=== PATIENT | female | born 1965 | race Caucasian/White ===

== ENCOUNTER 2018-09-21 11:48 | Emergency (ER) | payer BC ==
[2018-09-21 12:32] VITALS: TEMP 98.1
[2018-09-21 12:55] LABS: Appearance,Urine Clear (Clear); Bilirubin,Urine Negative (Negative); Blood,Urine Negative (Negative); Color,Urine Light Yellow; Glucose,Urine (UA) Negative (Negative); Ketones,Urine Negative (Negative); Leukocyte Esterase,Urine Negative (Negative); Nitrite,Urine Negative (Negative); PH, Urine 6.5 (5.0-8.0); Protein,Urine Negative (Negative); Specific Gravity,Urine 1.011 (1.001-1.035); Urobilinogen,Urine <2.0 mg/dL (<2.0)
[2018-09-21] MEDS ORDERED: SODIUM CHLORIDE 0.9% 1,000 ML IV STA (13:42)
[2018-09-21 14:12] VITALS: RESP 18
[2018-09-21 14:31] LABS: Basophils % (A) 0 %; Eosinophils # (A) 0.1 k/uL (0-0.7); Eosinophils % (A) 2 %; HCT 37.3 % (34.0-46.0); HGB 12.5 gm/dL (11.4-16.0); Lymphocytes # (A) 1.5 k/uL (1.0-4.8); Lymphocytes % (A) 19 %; MCH 27.6 pg (25.0-35.0); MCHC 33.5 g/dL (31.0-37.0); MCV 82.3 fL (80.0-100.0); Mean Platelet Volume 7.6; Monocytes # (A) 0.3 k/uL (0-1.0); Monocytes % (A) 4 %; Neutrophils # (A) 5.7 k/uL (1.3-7.7); Neutrophils % (A) 74 %; Platelet Count 254 k/uL (150-450); RBC 4.53 m/uL (3.80-5.40); RDW 15.3 % (11.5-15.5); WBC 7.8 k/uL (3.8-10.6)
[2018-09-21 14:36] LABS: ALT 46 U/L (9-52); AST 31 U/L (14-36); Albumin 4.3 g/dL (3.5-5.0); Alkaline Phosphatase 151 U/L (38-126); Amylase 45 U/L (30-110); Anion Gap 9 mmol/L; Blood Urea Nitrogen 17 mg/dL (7-17); Carbon Dioxide 31 mmol/L (22-30); Chloride 101 mmol/L (98-107); Glucose 100 mg/dL (74-99); Lipase 99 U/L (23-300); Potassium 3.9 mmol/L (3.5-5.1); Sodium 141 mmol/L (137-145); Total Bilirubin 0.5 mg/dL (0.2-1.3); Total Protein 7.5 g/dL (6.3-8.2)
--- NOTE | 2018-09-21 14:37 | CT ---
EXAMINATION TYPE: CT abdomen pelvis wo con DATE OF EXAM: 09/21/2018 COMPARISON: None INDICATION: Right sided flank pain, low back pain DLP: 2451 mGycm, Automated exposure control for dose reduction was used. CONTRAST: 0 mL of Isovue 300. Study performed without Oral Contrast TECHNIQUE: Axial images were obtained from above the diaphragm to the pubic rami in the axial plane a t 5 mm thick sections. Reconstructed images are reviewed on the computer in the coronal plane. FINDINGS: Limited CT sections are obtained the lung bases. The lung bases are clear. Coronary artery calcific ations present. CT ABDOMEN: Postsurgical changes are within the stomach. Liver: Normal Spleen: Normal Pancreas: Normal Adrenal glands: The adrenal glands are normal. Gallbladder: Surgically absent. Kidneys: No masses are evident. No hydronephrosis is present. No cysts are present. There may be s ome malrotation of the right kidney. No renal stones are evident. Aorta: Vascular calcification is within the aorta. Inferior vena cava: Normal. CT PELVIS: Loops of bowel within the abdomen and pelvis are normal. Small bowel loops are decompressed. Stud y is without oral contrast limiting bowel evaluation. Appendix: Not identified. No inflammatory changes or dilated tubular structures are evident. Urinary bladder: Normal Genitourinary structures: Uterus and adnexa are normal. Osseous structures: No suspicious lytic or sclerotic lesions. IMPRESSIONS: 1. No abnormality to account for right flank pain
--- NOTE | 2018-09-21 14:46 | ED ---
Abdominal Pain HPI - General Chief Complaint: Abdominal Pain Stated Complaint: Lower back pain Time Seen by Provider: 09/21/18 13:22 Source: patient, RN notes reviewed Mode of arrival: ambulatory Limitations: no limitations - History of Present Illness Initial Comments: 53-year-old female presents emergency Department with chief complaint of right flank pain. Patient states started a few days ago. Patient states has progressively worsened but is exacerbated by movement. Patient feels that this muscle skeletal nature. Patient was seen by her chiropractor recommended her to be evaluated emergency department. Patient denies any associated nausea and diarrhea constipation no dysuria no hematuria. Patient states that she's had prior appendectomy and cholecystectomy along with bariatric surgery. - Related Data Home Medications Medication Instructions Recorded Confirmed Hydrochlorothiazide [Hydrodiuril] 25 mg PO DAILY 04/04/14 09/21/18 Ergocalciferol (Vitamin D2) 50,000 unit PO PUENTE 09/21/18 09/21/18 [Drisdol] Olmesartan Medoxomil [Benicar] 40 mg PO DAILY 09/21/18 09/21/18 Omeprazole [PriLOSEC] 20 mg PO DAILY 09/21/18 09/21/18 amLODIPine [Norvasc] 5 mg PO DAILY 09/21/18 09/21/18 Allergies Allergy/AdvReac Type Severity Reaction Status Date / Time No Known Allergies Allergy Verified 09/21/18 13:39 Review of Systems ROS Statement: Those systems with pertinent positive or pertinent negative responses have been documented in the HPI. ROS Other: All systems not noted in ROS Statement are negative. Past Medical History Past Medical History: Asthma, GERD/Reflux, Hypertension, Sleep Apnea/CPAP/BIPAP Additional Past Medical History / Comment(s): "SEASONAL ASTHMA" , HX OF BRONCHITIS, USES C-PAP OCCASIONALLY. ANEMIA. History of Any Multi-Drug Resistant Organisms: None Reported, MRSA Date of last positivie culture/infection: In the past MDRO Source:: pt Past Surgical History: Appendectomy, Bariatric Surgery, Section, Cholecystectomy Additional Past Surgical History / Comment(s): EXPLORATORY SURGERY. lap gastric sleeve w/ EGD 01/03/15 Past Anesthesia/Blood Transfusion Reactions: Previous Problems w/ Anesthesia, Motion Sickness, Postoperative Nausea & Vomiting (PONV) Past Psychological History: No Psychological Hx Reported Smoking Status: Former smoker Past Alcohol Use History: None Reported Past Drug Use History: Cocaine, Marijuana General Exam Limitations: no limitations General appearance: alert, in no apparent distress Head exam: Present: atraumatic, normocephalic, normal inspection Neck exam: Present: normal inspection. Absent: tenderness, meningismus, lymphadenopathy Respiratory exam: Present: normal lung sounds bilaterally. Absent: respiratory distress, wheezes, rales, rhonchi, stridor Cardiovascular Exam: Present: regular rate, normal rhythm, normal heart sounds. Absent: systolic murmur, diastolic murmur, rubs, gallop, clicks GI/Abdominal exam: Present: soft, tenderness (Minimal), normal bowel sounds. Absent: distended, guarding, rebound, rigid Back exam: Present: CVA tenderness (R) (Minimal). Absent: CVA tenderness (L) Neurological exam: Present: alert, oriented X3, CN II-XII intact Skin exam: Present: warm, dry, intact, normal color. Absent: rash Course Vital Signs 09/21/18 09/21/18 12:28 14:11 Temperature 98.1 F Pulse Rate 75 78 Respiratory 20 18 Rate Blood Pressure 148/75 118/78 O2 Sat by Pulse 97 99 Oximetry Medical Decision Making - Medical Decision Making 53-year-old female presented for right flank pain. Patient labwork urinalysis and CT. There are no acute findings. This most likely is muscle skeletal in nature. Patient will follow-up with PCP and chiropractor. Return parameters were discussed. - Lab Data Result diagrams: 09/21/18 14:00 09/21/18 14:00 Lab Results 09/21/18 09/21/18 09/21/18 Range/Units 12:37 14:00 14:00 WBC 7.8 (3.8-10.6) k/uL RBC 4.53 (3.80-5.40) m/uL Hgb 12.5 (11.4-16.0) gm/dL Hct 37.3 (34.0-46.0) % MCV 82.3 (80.0-100.0) fL MCH 27.6 (25.0-35.0) pg MCHC 33.5 (31.0-37.0) g/dL RDW 15.3 (11.5-15.5) % Plt Count 254 (150-450) k/uL Neutrophils % 74 % Lymphocytes % 19 % Monocytes % 4 % Eosinophils % 2 % Basophils % 0 % Neutrophils # 5.7 (1.3-7.7) k/uL Lymphocytes # 1.5 (1.0-4.8) k/uL Monocytes # 0.3 (0-1.0) k/uL Eosinophils # 0.1 (0-0.7) k/uL Basophils # 0.0 (0-0.2) k/uL Sodium 141 (137-145) mmol/L Potassium 3.9 (3.5-5.1) mmol/L Chloride 101 (98-107) mmol/L Carbon Dioxide 31 H (22-30) mmol/L Anion Gap 9 mmol/L BUN 17 (7-17) mg/dL Creatinine 0.54 (0.52-1.04) mg/dL Est GFR (CKD-EPI)AfAm >90 (>60 ml/min/1.73 sqM) Est GFR (CKD-EPI)NonAf >90 (>60 ml/min/1.73 sqM) Glucose 100 H (74-99) mg/dL Calcium 10.0 (8.4-10.2) mg/dL Total Bilirubin 0.5 (0.2-1.3) mg/dL AST 31 (14-36) U/L ALT 46 (9-52) U/L Alkaline Phosphatase 151 H (38-126) U/L Total Protein 7.5 (6.3-8.2) g/dL Albumin 4.3 (3.5-5.0) g/dL Amylase 45 (30-110) U/L Lipase 99 (23-300) U/L Urine Color Light Yellow Urine Appearance Clear (Clear) Urine pH 6.5 (5.0-8.0) Ur Specific [place] 1.011 (1.001-1.035) Urine Protein Negative (Negative) Urine Glucose (UA) Negative (Negative) Urine Ketones Negative (Negative) Urine Blood Negative (Negative) Urine Nitrite Negative (Negative) Urine Bilirubin Negative (Negative) Urine Urobilinogen <2.0 (<2.0) mg/dL Ur Leukocyte Esterase Negative (Negative) Disposition Clinical Impression: Back pain, Flank pain Disposition: HOME SELF-CARE Condition: Stable Instructions (If sedation given, give patient instructions): Back Pain (ED), Flank Pain (ED) Additional Instructions: Please return to the Emergency Department if symptoms worsen or any other concerns. Is patient prescribed a controlled substance at d/c from ED?: No Referrals: Nikki Turcios MD [Primary Care Provider] - 1-2 days Time of Disposition: 14:46
[2018-09-21] MEDS ORDERED: ACET/COD 300 MG/30 MG STARTER PACK 6 TAB BTL PO STA (14:48)
[2018-09-21] MEDS ORDERED: KETOROLAC 30 MG/ML 1 ML VIAL IVP STA (14:48)
[2018-09-21 15:09] VITALS: BP 118/67; PULSE 79
== END 2018-09-21 15:07 | disposition home or self-care (01) ==
LOC: EC 11:48
DX: R10.9 Unspecified abdominal pain (principal); M54.5 Low back pain; K21.9 Gastro-esophageal reflux disease without esophagitis; I10 Essential (primary) hypertension; G47.30 Sleep apnea, unspecified; Z79.899 Other long term (current) drug therapy; Z87.891 Personal history of nicotine dependence; Z90.49 Acquired absence of other specified parts of digestive tract; Z90.89 Acquired absence of other organs; Z98.84 Bariatric surgery status
CPT/HCPCS: 36415; 80053; 82150; 83690; 85025; 81003; 74176; 99284; 96374; 96361; J1885

== ENCOUNTER 2019-05-07 09:08 | Observation (INO) | payer BC ==
[2019-05-07] MEDS ORDERED: ASPIRIN 81 MG PO STA (09:24)
--- NOTE | 2019-05-07 10:12 | ED ---
Chest Pain HPI - General Chief Complaint: Chest Pain Stated Complaint: chest pain/arm numbness Time Seen by Provider: 05/07/19 09:14 Source: patient, RN notes reviewed Mode of arrival: wheelchair Limitations: no limitations - History of Present Illness Initial Comments: 53-year-old female presents emergency Department chief complaint of chest pain. Patient states that she had some pinching sensation across her chest yesterday now she states she has more heaviness in her chest, left arm numbness and pain. Patient also states that she feels short of breath. She has a history of hypertension and strong family cardiac disease history. Patient denies any medications for hyperlipidemia or diabetes though she states that she was told she was borderline and does dietary changes. Patient's states that she occasionally smokes but states that she used to heavy smoke 17 years ago. Patient complains nausea no vomiting she has meant to that she has swelling of her legs with this is chronic in which she takes hydrochlorothiazide for. Patient has no history of DVT or PE. - Related Data Home Medications Medication Instructions Recorded Confirmed Hydrochlorothiazide [Hydrodiuril] 25 mg PO DAILY 04/04/14 05/07/19 Ergocalciferol (Vitamin D2) 50,000 unit PO PUENTE 09/21/18 05/07/19 [Drisdol] Olmesartan Medoxomil [Benicar] 40 mg PO DAILY 09/21/18 05/07/19 Omeprazole [PriLOSEC] 20 mg PO DAILY 09/21/18 05/07/19 amLODIPine [Norvasc] 5 mg PO DAILY 09/21/18 05/07/19 Allergies Allergy/AdvReac Type Severity Reaction Status Date / Time No Known Allergies Allergy Verified 05/07/19 11:15 Review of Systems ROS Statement: Those systems with pertinent positive or pertinent negative responses have been documented in the HPI. ROS Other: All systems not noted in ROS Statement are negative. EKG Findings - EKG Comments: EKG Findings:: EKG performed at 9:47 normal sinus rhythm rate of 72, NC 170 QS 98 QT/QTC 392/429 there is S1 [id number] Past Medical History Past Medical History: Asthma, GERD/Reflux, Hypertension, Sleep Apnea/CPAP/BIPAP Additional Past Medical History / Comment(s): "SEASONAL ASTHMA" , HX OF BRONCHITIS, USES C-PAP OCCASIONALLY. ANEMIA. History of Any Multi-Drug Resistant Organisms: None Reported, MRSA Date of last positivie culture/infection: In the past MDRO Source:: pt Past Surgical History: Appendectomy, Bariatric Surgery, Section, Cholec ystectomy Additional Past Surgical History / Comment(s): EXPLORATORY SURGERY. lap gastric sleeve w/ EGD 01/03/15 Past Anesthesia/Blood Transfusion Reactions: Previous Problems w/ Anesthesia, Motion Sickness, Postoperative Nausea & Vomiting (PONV) Past Psychological History: No Psychological Hx Reported Smoking Status: Former smoker Past Alcohol Use History: None Reported Past Drug Use History: Cocaine, Marijuana General Exam Limitations: no limitations General appearance: alert, in no apparent distress Head exam: Present: atraumatic, normocephalic, normal inspection Eye exam: Present: normal appearance, PERRL, EOMI. Absent: scleral icterus, conjunctival injection, periorbital swelling ENT exam: Present: normal exam, normal oropharynx, mucous membranes moist Neck exam: Present: normal inspection, full ROM. Absent: tenderness, meningismus, lymphadenopathy Respiratory exam: Present: normal lung sounds bilaterally, chest wall tenderness. Absent: respiratory distress, wheezes, rales, rhonchi, stridor Cardiovascular Exam: Present: regular rate, normal rhythm, normal heart sounds. Absent: systolic murmur, diastolic murmur, rubs, gallop, clicks GI/Abdominal exam: Present: soft, normal bowel sounds. Absent: distended, tenderness, guarding, rebound, rigid Neurological exam: Present: alert, oriented X3, CN II-XII intact Skin exam: Present: warm, dry, intact, normal color. Absent: rash Course Vital Signs 05/07/19 05/07/19 05/07/19 09:10 09:13 09:53 Temperature 97.5 F L Pulse Rate 84 81 Respiratory 20 20 Rate Blood Pressure 184/77 O2 Sat by Pulse 99 99 97 Oximetry 05/07/19 05/07/19 05/07/19 10:00 10:10 10:13 Temperature Pulse Rate 85 74 Respiratory 20 Rate Blood Pressure 119/62 128/66 O2 Sat by Pulse 97 97 100 Oximetry 05/07/19 05/07/19 05/07/19 10:20 10:30 10:40 Temperature Pulse Rate 81 73 77 Respiratory Rate Blood Pressure 128/66 128/66 132/64 O2 Sat by Pulse 97 99 96 Oximetry 05/07/19 05/07/19 10:50 11:00 Temperature Pulse Rate 73 79 Respiratory Rate Blood Pressure 132/64 115/72 O2 Sat by Pulse 95 95 Oximetry Chest Pain MDM - MDM patient's lab work essentially unremarkable patient's d-dimer is mildly elevated CT obtained no PE. Patient be admitted for cardiac rule out. Disposition Clinical Impression: Hypertension, Chest pain Disposition: ADMITTED IP TO THIS HOSP Condition: Stable Referrals: Nikki Turcios MD [Primary Care Provider] - 1-2 days
--- NOTE | 2019-05-07 10:14 | XR ---
EXAMINATION TYPE: XR chest 2V DATE OF EXAM: 05/07/2019 COMPARISON: 10/23/2014 HISTORY: Chest pain TECHNIQUE: Frontal and lateral views of the chest are obtained. FINDINGS: There is no focal air space opacity, pleural effusion, or pneumothorax seen. The cardiac silhouette size is enlarged but stable from the prior. The osseous structures are intact. Moderate multilevel degenerative change of the spine. IMPRESSION: Stable enlarged cardiomediastinal silhouette. No acute process.
[2019-05-07 10:15] LABS: Basophils % (A) 0 %; Eosinophils # (A) 0.1 k/uL (0-0.7); Eosinophils % (A) 1 %; HCT 39.9 % (34.0-46.0); HGB 12.9 gm/dL (11.4-16.0); Lymphocytes % (A) 15 %; MCH 26.6 pg (25.0-35.0); MCHC 32.4 g/dL (31.0-37.0); MCV 82.2 fL (80.0-100.0); Mean Platelet Volume 8.1; Monocytes # (A) 0.3 k/uL (0-1.0); Monocytes % (A) 5 %; Neutrophils # (A) 5.2 k/uL (1.3-7.7); Neutrophils % (A) 77 %; Platelet Count 212 k/uL (150-450); RBC 4.85 m/uL (3.80-5.40); RDW 14.4 % (11.5-15.5); WBC 6.7 k/uL (3.8-10.6)
[2019-05-07 10:23] LABS: ALT 36 U/L (4-34); AST 30 U/L (14-36); African American GFR (CKD) >90 (>60 ml/min/1.73 sqM); Albumin 4.1 g/dL (3.5-5.0); Alkaline Phosphatase 146 U/L (38-126); Anion Gap 9 mmol/L; Blood Urea Nitrogen 16 mg/dL (7-17); Calcium 9.9 mg/dL (8.4-10.2); Carbon Dioxide 30 mmol/L (22-30); Chloride 100 mmol/L (98-107); Glucose 115 mg/dL (74-99); Magnesium 1.9 mg/dL (1.6-2.3); Non-African American GFR(CKD) >90 (>60 ml/min/1.73 sqM); Sodium 139 mmol/L (137-145); Total Bilirubin 0.7 mg/dL (0.2-1.3); Total Protein 7.5 g/dL (6.3-8.2)
[2019-05-07 10:33] LABS: INR 0.9 (<1.2); Partial Thromboplastin Time 20.5 sec (22.0-30.0); Prothrombin Time 10.1 sec (9.0-12.0)
[2019-05-07 10:48] LABS: D-Dimer 0.63 mg/L FEU (<0.60)
[2019-05-07] MEDS ORDERED: ACETAMINOPHEN TAB 325 MG TAB PO STA (10:58)
[2019-05-07] MEDS ORDERED: ONDANSETRON 4 MG/2 ML VIAL IVP STA (10:59)
--- NOTE | 2019-05-07 11:47 | CT ---
EXAMINATION TYPE: CT chest angio for PE DATE OF EXAM: 05/07/2019 COMPARISON: HISTORY: Chest pain, elevated d-dimer CT DLP: 942.5 mGycm CONTRAST: CT chest with contrast and 3D reconstruction with MIP imaging is performed with IV Contrast, patient injected with 100 mL of Isovue 370. Contrast-enhanced CT of the chest was performed through the course of the pulmonary arteries with singh g and mediastinal window settings submitted. 3D reconstruction with MIP imaging was also performed. PULMONARY ARTERIES: The pulmonary arteries and their major tributaries are patent. I do not see mendoza dence for sizable filling defect to suggest pulmonary embolic process. LUNGS: Scattered groundglass infiltrates noted which may reflect acute inflammatory process. No evide nce for atelectasis. No pulmonary nodule or mass is detected. No pleural effusion. MEDIASTINUM: Thoracic aorta is of normal caliber,however, evaluation is limited given timing of the contrast bolus. If there is concern for thoracic aortic pathology consider ANN-MARIE. Correlate clinicall y . The heart is not enlarged. No evidence for mediastinal mass. No mediastinal lymph nodes greater than 1cm. HILAR STRUCTURES: No evidence for mass. No hilar lymph nodes greater than 1 cm. UPPER ABDOMEN: No significant abnormality is seen. IMPRESSION: 1. No evidence for Pulmonary embolism at this time.
[2019-05-07] MEDS ORDERED: NITROGLYCERIN SL TABS 0.4 MG TAB SUBLINGUAL PRN (12:02)
[2019-05-07] MEDS ORDERED: HEPARIN SODIUM,PORCINE 5,000 UNIT/ML 1 ML VIAL IV PRN (12:02)
[2019-05-07] MEDS ORDERED: HEPARIN SODIUM,PORCINE 5,000 UNIT/ML 1 ML VIAL IV ONE (12:02)
[2019-05-07] MEDS ORDERED: HEPARIN SOD,PORK IN 0.45% NACL 25,000 UNIT in 0.45% NACL 1 250ML.BAG IV SCH (12:15)
--- NOTE | 2019-05-07 12:57 | P.HPIM ---
History of Present Illness H&P Date: 05/07/19 53 years old patient of Dr. Turcios with past medical history of asthma GERD hypertension and sleep apnea comes in with chest pain that started yesterday with the feeling of heaviness in the chest associated with left of numbness and pain on and shortness of breath for the past 3 days . Patient denies any previous history of coronary artery disease. She does smokesocially fo rthe past 6 mo nth but has not smoked for th e past 17 years .patient does have history of severe GERD and has taken Motrin yesterday for the shoulder pain and muscle aches. Patient does have fibromyalgia and has been experiencing body aches for the past few days. She has also noticed swelling in the lower extremities Patient denies any nausea vomiting melena or history of peptic ulcer disease. He denies any intake of NSAIDs. Patient has no history of DVT or PE.patient will be kept in observation. Troponin trend will be done. Cardiology consult placed Review of Systems Constitutional: Denies chills, Denies fever, Denies lethargy, Denies malaise, Denies poor appetite, Denies weakness, Denies weight loss Eyes: denies decreased vision, denies diplopia, denies discharge, denies pain Ears: deny: decreased hearing Ears, nose, mouth and throat: Denies dental pain, Denies headache, Denies nasal discharge, Denies nose pain Cardiovascular: endorses chest pain, endorses decreased exercise tolerance, Denies edema, endorsess high blood pressure, Denies irregular heart beat, Denies palpitations, Denies paroxysmal nocturnal dyspnea, Denies rapid heart beat, endorses shortness of breath Respiratory: Denies congestion, Denies cough, Denies cough with sputum, Denies dyspnea, Denies home oxygen, Denies wheezing Gastrointestinal: Denies abdominal pain, Denies change in bowel habits, Denies coffee ground emesis, Denies early satiety, Denies excessive gas, Denies heartburn, Denies hematemesis, Denies hematochezia, Denies loss of appetite, Denies nausea, Denies vomiting Genitourinary: Denies dysuria, Denies flank pain, Denies kidney stones, Denies menorrhagia, Denies urgency, Denies urinary frequency Musculoskeletal: Denies gait dysfunction, Denies limitation of motion, Denies morning stiffness, Denies muscle cramps endorses bodyaches shoulder pain bilaterally Integumentary: Denies rash, Denies wounds, Denies brittle nails, Denies change in hair/nails, Denies darkening of skin Neurological: Denies balance difficulties, Denies change in speech, Denies double vision, Denies gait dysfunction, Denies loss of vision, Denies motor disturbance, Denies numbness, Denies paralysis, Denies paresthesias, Denies seizures Psychiatric: Denies anxiety, Denies depression Endocrine: Denies excessive sweating, Denies excessive thirst, Denies high blood sugars, Denies palpitations Hematologic/Lymphatic: Denies easy bruising, Denies lymphadenopathy Past Medical History Past Medical History: Asthma, GERD/Reflux, Hypertension, Sleep Apnea/CPAP/BIPAP Additional Past Medical History / Comment(s): "SEASONAL ASTHMA" , HX OF BRONCHITIS, USES C-PAP OCCASIONALLY. ANEMIA. History of Any Multi-Drug Resistant Organisms: None Reported, MRSA Date of last positivie culture/infection: In the past MDRO Source:: pt Past Surgical History: Appendectomy, Bariatric Surgery, Section, Cholecystectomy Additional Past Surgical History / Comment(s): EXPLORATORY SURGERY. lap gastric sleeve w/ EGD 01/03/15 Past Anesthesia/Blood Transfusion Reactions: Previous Problems w/ Anesthesia, Motion Sickness, Postoperative Nausea & Vomiting (PONV) Past Psychological History: No Psychological Hx Reported Smoking Status: Former smoker Past Alcohol Use History: None Reported Past Drug Use History: Cocaine, Marijuana Medications and Allergies Home Medications Medication Instructions Recorded Confirmed Type Hydrochlorothiazide [Hydrodiuril] 25 mg PO DAILY 04/04/14 05/07/19 History Ergocalciferol (Vitamin D2) 50,000 unit PO PUENTE 09/21/18 05/07/19 History [Drisdol] Olmesartan Medoxomil [Benicar] 40 mg PO DAILY 09/21/18 05/07/19 History Omeprazole [PriLOSEC] 20 mg PO DAILY 09/21/18 05/07/19 History amLODIPine [Norvasc] 5 mg PO DAILY 09/21/18 05/07/19 History Allergies Allergy/AdvReac Type Severity Reaction Status Date / Time No Known Allergies Allergy Verified 05/07/19 11:15 Physical Exam Vitals: Vital Signs Temp Pulse Resp BP Pulse Ox 05/07/19 11:00 79 115/72 95 05/07/19 10:50 73 132/64 95 05/07/19 10:40 77 132/64 96 05/07/19 10:30 73 128/66 99 05/07/19 10:20 81 128/66 97 05/07/19 10:13 20 100 05/07/19 10:10 74 128/66 97 05/07/19 10:00 85 119/62 97 05/07/19 09:53 81 97 05/07/19 09:13 20 99 05/07/19 09:10 97.5 F L 84 20 184/77 99 Intake and Output 05/06/19 05/07/19 05/07/19 22:59 06:59 14:59 Other: Weight 172.365 kg - Constitutional General appearance: cooperative, no acute distress, obese - EENT Eyes: anicteric sclerae, PERRLA, normal appearance ENT: hearing grossly normal - Neck Neck: no lymphadenopathy, normal ROM, no other, no rigidity, no stridor, no thyromegaly - Respiratory Respiratory: bilateral: CTA, negative: diminished, dullness, rales, rhonchi - Cardiovascular Rhythm: regular Heart sounds: normal: S1, S2 Abnormal Heart Sounds: no systolic murmur, no diastolic murmur, no rub, no S3 Gallop, no S4 Gallop, no click, no other - Gastrointestinal General gastrointestinal: normal bowel sounds, softnontender - Integumentary Integumentary: no rash - Neurologic Neurologic: CNII-XII intact - Musculoskeletal Musculoskeletal: gait normal, strength equal bilaterally - Psychiatric Psychiatric: A&O x's 3, appropriate affect Results CBC & Chem 7: 05/07/19 09:17 05/07/19 09:17 Labs: Abnormal Lab Results - Last 24 Hours (Table) 05/07/19 05/07/19 Range/Units 09:17 09:17 APTT 20.5 L (22.0-30.0) sec D-Dimer 0.63 H (<0.60) mg/L FEU Glucose 115 H (74-99) mg/dL ALT 36 H (4-34) U/L Alkaline Phosphatase 146 H (38-126) U/L Thrombosis Risk Factor Assmnt - DVT/VTE Prophylaxis DVT/VTE Prophylaxis: Mechanical Prophylaxis ordered Assessment and Plan Plan: #1 acute chest pain rule out cardiac etiology the etiology of possible GERD and fibromyalgia, troponin 3 ordered. EKG and troponin negative for cardiology consult placed.Protonix 40 mg twice a dayd-dimer was elevated CT is negative for any blood clots. #2 hypertension Benicar 40 mg by mouth daily, hydrochlorothiazide 25 mg daily #3 history of GERD hold Prilosec Protonix 40 twice a day #4 obstructive sleep apnea continue CPAP at night DVT prophylaxis with IPC CODE STATUS full code
[2019-05-07] MEDS ORDERED: BACLOFEN 10 MG TAB PO PRN (12:58)
[2019-05-07 16:38] VITALS: RESP 18
[2019-05-07] MEDS: ASPIRIN-ACET-CAFF 250-250-65MG 1 EACH TAB PO PRN (16:52)
[2019-05-07] MEDS: PANTOPRAZOLE 40 MG TABLET PO SCH (17:21)
[2019-05-08 05:50] LABS: Mean Platelet Volume 8.3; Platelet Count 189 k/uL (150-450)
[2019-05-08 06:02] LABS: Cholesterol 197 mg/dL (<200); HDL Cholesterol 43 mg/dL (40-60); LDL Cholesterol,Calculated 128 mg/dL (0-99); Triglycerides 131 mg/dL (<150)
--- NOTE | 2019-05-08 06:53 | P.CRDCN ---
History of Present Illness Consult date: 05/08/19 Chief complaint: Chest pain History of present illness: This is a very pleasant 53-year-old female patient with a past medical history significant for morbid obesity, sleep apnea the patient is not using her CPAP machine, as well as hypertension, presented to the hospital complaining of chest discomfort. She was in her usual state of health yesterday when she started experiencing discomfort in the chest, as a sharp/pressure, with some radiation to the right arm. She was feeling also nauseated with the chest pain. No sweating. No shortness of breath, dizziness, heart racing, or syncope. She decided to come to the hospital for further evaluation. The patient EKG showed sinus rhythm with nonspecific changes inferiorly. Three sets of cardiac enzymes came in to be unremarkable. The chest x-ray did not show any acute abnormalities. The d-dimer came in to be elevated but subsequently CTA of the chest did not show any acute abnormalities. Currently the patient is chest pain free. Please note that the patient does have significant family history of coronary artery disease with her father who suffered a heart attack at age 40 and in the 70s. The patient herself does not have coronary artery disease nor diabetes. She used to smoke but she quit smoking long time ago. Past Medical History Past Medical History: Asthma, GERD/Reflux, Hypertension, Sleep Apnea/CPAP/BIPAP Additional Past Medical History / Comment(s): Bilateral leg edema, seasonal asthma, bronchitis, KIKO but has not used her Cpap for years, chronic anemia-has had past iron infusions. History of Any Multi-Drug Resistant Organisms: MRSA Date of last positivie culture/infection: 2003 MDRO Source:: L breast Past Surgical History: Appendectomy, Bariatric Surgery, Section, Cholecystectomy Additional Past Surgical History / Comment(s): Exploratory laparoto my/appendectomy, abdominal laproscopy following cholecystectomy d/t slow healling with eladia, EGD, colonoscopy, lap gastric sleeve. Past Anesthesia/Blood Transfusion Reactions: Previous Problems w/ Anesthesia, Motion Sickness, Postoperative Nausea & Vomiting (PONV) Additional Past Anesthesia/Blood Transfusion Reaction / Comment(s): Severe bronchospasm once after surgery. Pt has clausterphobia. Smoking Status: Former smoker - Past Family History Father Additional Family Medical History / Comment(s): Father had heart disease. He is . Mother Family Medical History: Renal Disease Additional Family Medical History / Comment(s): Mother is Medications and Allergies Home Medications Medication Instructions Recorded Confirmed Type Hydrochlorothiazide [Hydrodiuril] 25 mg PO DAILY 04/04/14 05/07/19 History Ergocalciferol (Vitamin D2) 50,000 unit PO PUENTE 09/21/18 05/07/19 History [Drisdol] Olmesartan Medoxomil [Benicar] 40 mg PO DAILY 09/21/18 05/07/19 History Omeprazole [PriLOSEC] 20 mg PO DAILY 09/21/18 05/07/19 History amLODIPine [Norvasc] 5 mg PO DAILY 09/21/18 05/07/19 History Allergies Allergy/AdvReac Type Severity Reaction Status Date / Time No Known Allergies Allergy Verified 05/07/19 11:15 Physical Exam Vitals: Vital Signs Temp Pulse Pulse Resp BP BP Pulse Ox 05/08/19 04:00 98.5 F 77 18 104/62 97 05/07/19 23:40 18 05/07/19 23:17 97.5 F L 80 18 131/71 96 05/07/19 20:00 18 05/07/19 19:28 97.9 F 72 18 118/65 95 05/07/19 16:00 97.8 F 73 18 115/72 95 05/07/19 13:52 82 19 05/07/19 13:10 98.3 F 82 19 117/74 95 05/07/19 11:00 79 115/72 95 05/07/19 10:50 73 132/64 95 05/07/19 10:40 77 132/64 96 05/07/19 10:30 73 128/66 99 05/07/19 10:20 81 128/66 97 05/07/19 10:13 20 100 05/07/19 10:10 74 128/66 97 05/07/19 10:00 85 119/62 97 05/07/19 09:53 81 97 05/07/19 09:13 20 99 05/07/19 09:10 97.5 F L 84 20 184/77 99 Intake and Output 05/07/19 05/07/19 05/08/19 14:59 22:59 06:59 Intake Total 73.841 102.664 Balance 73.841 102.664 Intake: Intake, IV Titration 73.841 102.664 Amount Heparin Sod,Pork in 0.45% 73.841 102.664 NaCl 25,000 unit In 0.45 % NaCl 1 250ml.bag @ 5. 802 UNITS/KG/HR 10.001 mls/hr IV .Q24H JANICE Rx#: [id number] Other: # Voids 1 1 Weight 172.365 kg 172.365 kg - Constitutional General appearance: no acute distress - Respiratory Respiratory: bilateral: CTA - Cardiovascular Rhythm: regular Heart sounds: normal: S1, S2 Results 05/08/19 05:33 05/07/19 09:17 Cardiac Enzymes 05/07/19 05/07/19 05/07/19 Range/Units 09:17 09:17 14:56 AST 30 (14-36) U/L Troponin I <0.012 <0.012 (0.000-0.034) ng/mL 05/07/19 Range/Units 22:20 AST (14-36) U/L Troponin I <0.012 (0.000-0.034) ng/mL Coagulation 05/07/19 05/07/19 05/08/19 Range/Units 09:17 18:11 02:07 PT 10.1 (9.0-12.0) sec APTT 20.5 L 31.7 H 39.7 H (22.0-30.0) sec 05/08/19 Range/Units 05:33 PT (9.0-12.0) sec APTT 50.6 H (22.0-30.0) sec Lipids 05/08/19 Range/Units 05:33 Triglycerides 131 (<150) mg/dL Cholesterol 197 (<200) mg/dL HDL Cholesterol 43 (40-60) mg/dL CBC 05/07/19 05/08/19 Range/Units 09:17 05:33 WBC 6.7 (3.8-10.6) k/uL RBC 4.85 (3.80-5.40) m/uL Hgb 12.9 (11.4-16.0) gm/dL Hct 39.9 (34.0-46.0) % Plt Count 212 189 (150-450) k/uL Comprehensive Metabolic Panel 05/07/19 Range/Units 09:17 Sodium 139 (137-145) mmol/L Potassium 4.0 (3.5-5.1) mmol/L Chloride 100 (98-107) mmol/L Carbon Dioxide 30 (22-30) mmol/L BUN 16 (7-17) mg/dL Creatinine 0.74 (0.52-1.04) mg/dL Glucose 115 H (74-99) mg/dL Calcium 9.9 (8.4-10.2) mg/dL AST 30 (14-36) U/L ALT 36 H (4-34) U/L Alkaline Phosphatase 146 H (38-126) U/L Total Protein 7.5 (6.3-8.2) g/dL Albumin 4.1 (3.5-5.0) g/dL Current Medications Generic Name Dose Route Start Last Admin Trade Name Freq PRN Reason Stop Dose Admin Acetaminophen/Aspirin/Caffeine 1 each 05/07/19 16:24 05/07/19 16:52 Excedrin PO 1 each Q6HR PRN Administration Headache Amlodipine Besylate 5 mg 05/08/19 09:00 Norvasc PO DAILY [facility] Aspirin 325 mg 05/08/19 09:00 Aspirin PO DAILY JANICE Baclofen 5 mg 05/07/19 12:58 05/07/19 13:35 Lioresal PO 5 mg TID PRN Administration Muscle Spasm Heparin Sodium (Porcine) 0 unit 05/07/19 12:02 Heparin IV Q6HR PRN Low PTT Protocol Hydrochlorothiazide 25 mg 05/08/19 09:00 Hydrodiuril PO DAILY [facility] Heparin Sodium/Sodium Chloride 250 mls @ 10.001 mls/hr 05/07/19 12:15 05/08/19 02:46 25,000 unit/ Sodium Chloride IV 11.8 units/kg/hr .Q24H JANICE 20.339 mls/hr Titration Protocol 5.802 UNITS/KG/HR Losartan Potassium 150 mg 05/08/19 09:00 Cozaar PO DAILY [facility] Nitroglycerin 0.4 mg 05/07/19 12:02 Nitrostat SUBLINGUAL Q5M PRN Chest Pain Pantoprazole Sodium 40 mg 05/07/19 17:30 05/07/19 17:21 Protonix PO 40 mg AC-BID JANICE Administration Intake and Output 05/07/19 05/07/19 05/08/19 14:59 22:59 06:59 Intake Total 73.841 102.664 Balance 73.841 102.664 Intake: Intake, IV Titration 73.841 102.664 Amount Heparin Sod,Pork in 0.45% 73.841 102.664 NaCl 25,000 unit In 0.45 % NaCl 1 250ml.bag @ 5. 802 UNITS/KG/HR 10.001 mls/hr IV .Q24H JANICE Rx#: [id number] Other: # Voids 1 1 Weight 172.365 kg 172.365 kg Patient Weight 05/08/19 06:59 Weight 172.365 kg 05/08/19 05:33 05/07/19 09:17 Assessment and Plan Assessment: Assessment #1 atypical chest discomfort #2 hypertension #3 morbid obesity #4 obstructive sleep apnea #5 significant family history of CAD Plan #1 acute coronary event was ruled out #2 pulmonary embolism was ruled out #3 I will obtain a stress test to rule out severe CAD #4 obtain an echocardiogram was Doppler #5 follow-up with the patient Thank you for allowing us participate in her care
[2019-05-08] MEDS ORDERED: HYDROCHLOROTHIAZIDE 25 MG TAB PO SCH (09:00)
[2019-05-08] MEDS ORDERED: ASPIRIN 325 MG TAB PO SCH (09:00)
[2019-05-08] MEDS ORDERED: amLODIPine 5 MG TAB PO SCH (09:00)
[2019-05-08] MEDS ORDERED: LOSARTAN 50 MG TAB PO SCH (09:00)
[2019-05-08] MEDS: ASPIRIN-ACET-CAFF 250-250-65MG 1 EACH TAB PO PRN (09:07)
--- NOTE | 2019-05-08 10:00 | ECHOF ---
Referral Reason:CP MEASUREMENTS -------- HEIGHT: 162.6 cm WEIGHT: 172.4 kg BP: 104/62 IVSd: 1.3 cm (0.6 - 1.1) LVIDd: 4.0 cm (3.9 - 5.3) LVPWd: 1.4 cm (0.6 - 1.1) IVSs: 2.1 cm LVIDs: 2.7 cm LVPWs: 2.2 cm Ao Diam: 2.6 cm (2.0 - 3.7) AV Cusp: 2.0 cm (1.5 - 2.6) LA Diam: 4.0 cm (2.7 - 3.8) MV EXCURSION: 16.252 mm (> 18.000) MV EF SLOPE: 97 mm/s (70 - 150) EPSS: 0.3 cm MV E Marcus: 0.61 m/s MV DecT: 216 ms MV A Marcus: 0.50 m/s MV E/A Ratio: 1.22 RAP: 5.00 mmHg RVSP: 18.81 mmHg FINDINGS -------- Sinus rhythm. This was a technically difficult study with suboptimal views. Morbid Obesity The left ventricular size is normal. There is mild concentric left ventricular hypertrophy. Overa ll left ventricular systolic function is normal with, an EF between 55 - 60 %. The diastolic fillin g pattern is normal for the age of the patient {E/E'}. The RV was not well visualized. The left atrium is mildly dilated. The right atrium was not well visualized. 5.0mg of Lumason was utilized for enhancement of images The aortic valve was not well visualized. There is no evidence of aortic regurgitation. There is no evidence of aortic stenosis. The mitral valve was not well visualized. There is trace to mild mitral regurgitation. The tricuspid valve was not well visualized. The pulmonic valve was not well visualized. The aortic root size is normal. IVC Not well visulized. There is no pericardial effusion. CONCLUSIONS -------- 1. Sinus rhythm. 2. This was a technically difficult study with suboptimal views. 3. Morbid Obesity 4. The left ventricular size is normal. 5. There is mild concentric left ventricular hypertrophy. 6. Overall left ventricular systolic function is normal with, an EF between 55 - 60 %. 7. The diastolic filling pattern is normal for the age of the patient {E/E'} 8. The RV was not well visualized. 9. The left atrium is mildly dilated. 10. The right atrium was not well visualized. 11. 5.0mg of Lumason was utilized for enhancement of images 12. The aortic valve was not well visualized. 13. There is no evidence of aortic regurgitation. 14. There is no evidence of aortic stenosis. 15. The mitral valve was not well visualized. 16. There is trace to mild mitral regurgitation. 17. The tricuspid valve was not well visualized. 18. The pulmonic valve was not well visualized. 19. The aortic root size is normal. 20. IVC Not well visulized. 21. There is no pericardial effusion. LINING FELLER BLINDSTITCH: Laura Leal RDCS
[2019-05-08] MEDS: PANTOPRAZOLE 40 MG TABLET PO SCH (12:29)
[2019-05-08 12:30] VITALS: BP 121/74; PULSE 92; TEMP 98.1
--- NOTE | 2019-05-08 13:29 | ECHOS ---
STRESS ECHOCARDIOGRAM DATE OF SERVICE: 05/08/2019 INDICATIONS: Chest pain. MEDICATIONS: BASELINE HEART RATE: 87 BASELINE BLOOD PRESSURE: 146/92 MAXIMUM HEART RATE: 148 MAXIMUM BLOOD PRESSURE: 189/69 85% MPHR: 143 100% MPHR: 168 METS: 5.0 MAXIMUM STAGE REACHED: II TOTAL EXERCISE TIME: 3 minutes CLINICAL INFORMATION: STRESS DATA: Heart rate is 87, pressure is 146/92 mmHg. Baseline EKG showed sinus mechanism. The patient exercised on the treadmill according to Darnell protocol for a total of 3 minutes and achieved 5.0 METs. Max heart rate was 148 which is about 88% of maximum predicted heart rate. Maximum blood pressure was 189/69 mmHg. Clinically the patient did not have any symptoms of chest pain or chest discomfort but the EKG showed about [address]-segment depression. ECHOCARDIOGRAM IMAGES: On echocardiogram images from parasternal long axis view, parasternal short axis view, apical 4 chamber and apical 2 chamber view were obtained as the baseline images, at the peak of the heart rate as well as on recovery. The echocardiogram images showed good augmentation in the left ventricular systolic function without any evidence of wall motion abnormalities concerning for ischemia. CONCLUSION: 1. Average exercise tolerance. 2. Mild EKG changes in response to exercise. 3. Normal echocardiogram in response to exercise. MMODL / IJN: [id number] /
--- NOTE | 2019-05-08 13:38 | P.DS ---
Providers Date of admission: 05/07/19 11:59 Expected date of discharge: 05/08/19 Attending physician: Sita Powers MD Consults: 05/07/19 12:02 Consult Physician Urgent Consulting Provider: Ascencion Donovan Consult Reason/Comments: chest pain Do you want consulting provider notified?: Yes Primary care physician: Nikki Turcios [place] [facility] Course: 53 years old patient of Dr. Turcios with past medical history of asthma GERD hypertension and sleep apnea comes in with chest pain that started yesterday with the feeling of heaviness in the chest associated with left of numbness and pain on and shortness of breath for the past 3 days . Patient denies any previous history of coronary artery disease. She does smokesocially fo rthe past 6 mo nth but has not smoked for th e past 17 years .patient does have history of severe GERD and has taken Motrin yesterday for the shoulder pain and muscle aches. Patient does have fibromyalgia and has been experiencing body aches for the past few days. She has also noticed swelling in the lower extremities Patient denies any nausea vomiting melena or history of peptic ulcer disease. He denies any intake of NSAIDs. Patient has no history of DVT or PE.patient will be kept in observation. Troponin trend will be done. Cardiology consult placed 05/08: Patient has been seen by cardiology and is scheduled for stress echocardiogram to be done today. Patient seen today for evaluation and the stress lab. No chest pain or shortness of breath at the time of evaluation. Stress test came back negative and patient cleared by cardiology for discharge home. Omeprazole will be discontinued and patient placed on Protonix 40 mg twice daily. Patient will be discharged home today in stable condition. Discharge diagnoses: acute chest pain secondary to GERD hypertension history of GERD obstructive sleep apnea Discharge plan: Home Impression and plan of care have been directed as dictated by the signing physi cian. Candy Edwards nurse practitioner acting as scribe for signing physician. Patient Condition at Discharge: Good Plan - Discharge Summary Discharge Rx Participant: No New Discharge Prescriptions: New Pantoprazole [Protonix] 40 mg PO BID #60 tablet. Continue Hydrochlorothiazide [Hydrodiuril] 25 mg PO DAILY amLODIPine [Norvasc] 5 mg PO DAILY Olmesartan Medoxomil [Benicar] 40 mg PO DAILY Ergocalciferol (Vitamin D2) [Drisdol] 50,000 unit PO PUENTE Discontinued Omeprazole [PriLOSEC] 20 mg PO DAILY Discharge Medication List Hydrochlorothiazide [Hydrodiuril] 25 mg PO DAILY 04/04/14 [History] Ergocalciferol (Vitamin D2) [Drisdol] 50,000 unit PO PUENTE 09/21/18 [History] Olmesartan Medoxomil [Benicar] 40 mg PO DAILY 09/21/18 [History] amLODIPine [Norvasc] 5 mg PO DAILY 09/21/18 [History] Pantoprazole [Protonix] 40 mg PO BID #60 tablet. 05/08/19 [Rx] Follow up Appointment(s)/Referral(s): Nikki Turcios MD [Primary Care Provider] - 1 Week Ascencion Donovan MD [STAFF PHYSICIAN] - 05/22/19 10:00 am Discharge Disposition: HOME SELF-CARE
== END 2019-05-08 15:08 | disposition home or self-care (01) ==
LOC: EC 09:08 → 1SOBS 11:59
PROVIDERS: ADMIT Internal Medicine; ATTEND Internal Medicine
DX: K21.9 Gastro-esophageal reflux disease without esophagitis (principal); E66.01 Morbid (severe) obesity due to excess calories; G47.33 Obstructive sleep apnea (adult) (pediatric); I10 Essential (primary) hypertension; I25.2 Old myocardial infarction; J45.909 Unspecified asthma, uncomplicated; M79.7 Fibromyalgia; Z79.899 Other long term (current) drug therapy; Z82.49 Family history of ischemic heart disease and other diseases of the circulatory system; Z87.891 Personal history of nicotine dependence; Z86.14 Personal history of Methicillin resistant Staphylococcus aureus infection; Z90.49 Acquired absence of other specified parts of digestive tract; Z98.84 Bariatric surgery status; Z84.1 Family history of disorders of kidney and ureter; Z68.44 Body mass index [BMI] 60.0-69.9, adult
CPT/HCPCS: 93005 ×2; 96366 ×2; 96376; 96365; 96375; 99285; 36415; 93306; 93351; 85379; 83880; 80061; 80053; 83735; 84484; 85025; 85049; 85610; 85730 ×2; 71046; 71275; G0378 ×2; J1644 ×2; J2405; Q9950; Q9967

== ENCOUNTER → 2019-06-01 | Outpatient (CLI) | payer BC ==
--- NOTE | 2019-06-01 10:17 | FL ---
EXAMINATION TYPE: FL UGI w esophagus DATE OF EXAM: 06/01/2019 LIMITED UGI: CLINICAL HISTORY: History of gastric sleeve surgery 2015 with chest pain. History of reflux for 20 y ears per patient. TECHNIQUE: Limited esophagram is performed utilizing 20 oz of barium. A total of roughly 30 seconds of fluoroscopic time was utilized during procedure. 32 spot images saved to PACS. COMPARISON: CTA chest and chest x-ray May 07, 2019. FINDINGS: The patient swallowed contrast without difficulty or delay. Esophageal peristalsis and mo tility are within normal limits. There is good flow of contrast along the diaphragmatic hiatus into proximal stomach and subsequent flow into gastric sleeve proximal anastomosis. There is mild delay in flow from distal sleeve and anastomosis into pylorus. Flow into duodenal sweep not documented. Patie nt is asymptomatic. There is no evidence of contrast extravasation to suggest leak. Cholecystectomy c lips redemonstrated. Cardiomegaly also redemonstrated. IMPRESSION: No evidence of significant obstruction .
== END | disposition home or self-care (01) ==
LOC: RADUSWWP 09:15
PROVIDERS: ATTEND Family Medicine
DX: R07.9 Chest pain, unspecified (principal)
CPT/HCPCS: 74240

== ENCOUNTER → 2020-01-14 | Outpatient (CLI) | payer BC ==
[2020-01-14 16:39] LABS: Basophils % (A) 0 %; Eosinophils # (A) 0.1 k/uL (0-0.7); Eosinophils % (A) 2 %; HCT 39.1 % (34.0-46.0); HGB 12.5 gm/dL (11.4-16.0); Hypochromasia Slight; Lymphocytes # (A) 1.2 k/uL (1.0-4.8); Lymphocytes % (A) 14 %; MCH 26.6 pg (25.0-35.0); MCHC 32.1 g/dL (31.0-37.0); MCV 82.9 fL (80.0-100.0); Mean Platelet Volume 8.5; Monocytes # (A) 0.5 k/uL (0-1.0); Monocytes % (A) 6 %; Neutrophils # (A) 6.3 k/uL (1.3-7.7); Neutrophils % (A) 77 %; Platelet Count 235 k/uL (150-450); RBC 4.71 m/uL (3.80-5.40); RDW 14.7 % (11.5-15.5); WBC 8.2 k/uL (3.8-10.6)
[2020-01-15 02:01] LABS: % Iron Saturation 10.64 (12.00-45.00); African American GFR (CKD) 114.6 (60.0-200.0); Albumin 4.3 g/dL (3.80-4.90); Albumin/Globulin Ratio 1.54 (1.60-3.17); Anion Gap 10.7 mmol/L (4.00-12.00); BUN/Creat Ratio 17.14 Ratio (12.00-20.00); Calcium 9.8 mg/dL (8.7-10.3); Carbon Dioxide 29.3 mmol/L (21.6-31.8); Globulin 2.8 g/dL (1.6-3.3); Non-African American GFR(CKD) 98.9 (60.0-200.0); Total Bilirubin 0.6 mg/dL (0.2-1.2); Total Protein 7.1 g/dL (6.2-8.2)
[2020-01-15 03:49] LABS: Hemoglobin A1C 5.8 % (4.0-6.0)
[2020-01-15 14:59] LABS: Chol/HDL Ratio 4.53; LDL Cholesterol,Calculated 146.4 mg/dL (0.0-131.0); VLDL Calculation 19.6 mg/dL (5.00-40.00)
[2020-01-15 15:07] LABS: T4, Free (Free Thyroxine) 1.2 ng/dL (0.80-1.80)
== END | disposition home or self-care (01) ==
LOC: LABWHC1 15:58
PROVIDERS: ATTEND Family Medicine
DX: I10 Essential (primary) hypertension (principal); K29.01 Acute gastritis with bleeding; R06.02 Shortness of breath; Z98.84 Bariatric surgery status; D51.9 Vitamin B12 deficiency anemia, unspecified
CPT/HCPCS: 36415; 80053; 80061; 82306; 82550; 82607; 83036; 83540; 83550; 84439; 84443; 84590; 84630; 85025

== ENCOUNTER → 2020-01-17 | Outpatient (CLI) | payer BC ==
--- NOTE | 2020-01-17 16:56 | CONS ---
CONSULTATION A 54-year-old lady who has been evaluated in [facility] for obstructive sleep apnea- hypopnea syndrome. HISTORY OF PRESENT ILLNESS SLEEP WAKE EVALUATION: Patient has severe obstructive sleep apnea-hypopnea syndrome documented in May of 2011. After that, she was started on treatment with CPAP, but because of the issue of claustrophobia and difficulties to use machine, she practically did not use CPAP therapy according to the patient. Presently her sleep schedule from 11 p.m. to 6:37 am on weekdays and on weekends from 11 p.m. to different time in the morning. No problems with falling asleep, although she has TV set in bedroom. She usually sleeps on the side position with snoring episodes of stopped breathing during sleep. Multiple awakenings from sleep about 4 times with gasping for air. Panic attack and 2 episodes of nocturia at night. The patient feels discomfort in her legs, restless leg symptoms while she is falling asleep. Sometimes may see dreams right while falling asleep, possibly hypoglossal hallucinations. She may take naps up to 3 times a day, usually afternoon. [place] Sleepiness Scale is in very high range of 18. PAST MEDICAL HISTORY: Positive for hypertension, acid reflux, fibromyalgia, anemia. PAST SURGICAL HISTORY: Gastric sleeve, uterus ablation. MEDICATIONS: Hydrochlorothiazide, amlodipine, herbal calciferol, olmesartan, Tapazole, furosemide, , potassium supplement. SOCIAL HISTORY: Positive for smoking in the past; quit about 20 years ago. Alcohol consumption none. REVIEW OF SYSTEMS: Multiple awakenings from sleep, significant excessive daytime sleepiness. FAMILY HISTORY: Positive for heart problems. PHYSICAL EXAM: Obese 54-year-old lady without distress, BP 117/72, HR about 100, RR 16, height 5, 4- 1/4, weight 397.6 pounds, body mass index 67.7, temperature 98.0, oxygen saturation on room air 93%. OROPHARYNX: Low position of soft palate, Mallampati 3, wide neck 18 inches in circumference. ABDOMEN: Extremely obese. LUNGS: Clear to percussion and to auscultation. Good air exchange. No wheezing or rhonchi. HEART: S1, S2 regular. No murmurs, gallops, or rubs. EXTREMITIES: No clubbing or cyanosis. ICT DEVELOPER: Awake, alert, and oriented X3. Cranial nerves 2 to 7 intact. There is no fasciculation or atrophy. noted. No focal deficits observed. IMPRESSION: 1. Snoring, multiple awakenings from sleep with gasping for air and stopped breathing. Low position of soft palate, wide neck, significant sleepiness with [place] Sleepiness Scale 18. History of severe obstructive sleep apnea in the past. Obstructive sleep apnea-hypopnea syndrome. 2. Morbid obesity, BMI 67.7. 3. Hypertension. 4. Acid reflux. 5. History of fibromyalgia. 6. Restless leg symptoms. 7. History of anemia. 8. Status post gastric sleeve surgery. 9. Status post uterus ablation. PLAN: 1. Polysomnography for evaluation of patient's breathing during sleep. 2. CPAP/BiPAP titration if sleep study confirms obstructive sleep apnea-hypopnea syndrome. 3. Preferable position during sleep on the side. 4. No driving if patient feels any sleepiness. 5. I will see patient for follow up visit to explain results of testing and following plan. Thank you very much for referring this patient for consultation. Sincerely, Kiran Lyon MD, PhD, FAASM Diplomat of [place] [employer] [employer] [facility] [place] MMODL / IJN: [id number] /
== END | disposition home or self-care (01) ==
LOC: SLEEP 11:45
PROVIDERS: ATTEND Internal Medicine
DX: G47.33 Obstructive sleep apnea (adult) (pediatric) (principal); G25.81 Restless legs syndrome; E66.01 Morbid (severe) obesity due to excess calories; I10 Essential (primary) hypertension; K21.9 Gastro-esophageal reflux disease without esophagitis; Z98.84 Bariatric surgery status; Z98.890 Other specified postprocedural states; Z68.44 Body mass index [BMI] 60.0-69.9, adult; Z87.39 Personal history of other diseases of the musculoskeletal system and connective tissue; Z86.2 Personal history of diseases of the blood and blood-forming organs and certain disorders involving the immune mechanism
CPT/HCPCS: 99211

== ENCOUNTER 2020-01-24 08:24 | Day surgery (SDC) | payer BC ==
[2020-01-22 13:49] VITALS: BMI 66.9
[~2020-01-24 08:24] MED LIST: LACTATED RINGERS 1,000 ML IV SCH
[2020-01-24] MEDS ORDERED: LACTATED RINGERS 1,000 ML IV ONE (08:43)
[2020-01-24 09:04] VITALS: RESP 16; TEMP 97.7
[2020-01-24] MEDS ORDERED: PROPOFOL 10 MG/ML 20 ML VIAL IV ONE (09:27)
--- NOTE | 2020-01-24 09:49 | P.PCN ---
Date of Procedure: 01/24/20 Description of Procedure: BRIEF HISTORY: Patient is a 54-year-old female who presents for outpatient evaluation with EGD for gastritis. Patient reports a long-standing history of GERD on Protonix therapy. She does report NSAID use with Motrin occasionally as well as Excedrin. She had an episode of black tarry stools a few weeks ago. No further episodes since that time. Protonix was increased to twice daily. She has a history of sleep gastrectomy in 2014. PROCEDURE PERFORMED: Esophagogastroduodenoscopy with biopsy. PREOPERATIVE DIAGNOSIS: Gastritis. ESTIMATED BLOOD LOSS: Minimal. IV sedation per anesthesia. PROCEDURE: After informed consent was obtained, the patient was brought into the endoscopy unit. IV sedation was administered by Anesthesia under continuous monitoring. Initially the Olympus GIF-190 video endoscope was inserted into the mouth. Esophagus intubated without any difficulty. It was gradually advanced into the stomach and duodenum and carefully examined. The bulb and the second part of the duodenum appeared normal, with biopsies taken. The scope at this time was withdrawn to the stomach, adequately insufflated with air, and upon careful examination, mucosa of the antrum, body, cardia and the fundus appeared normal, except for some linear erythema and irritation with some nodularity in the antrum of the body suggestive of moderate gastritis with biopsies of the antrum and body taken. Anatomy was also consistent with history of sleep gastrectomy. The scope was then withdrawn into the esophagus. The GE junction was located at 39 cm from the incisors and biopsied. The esophagus appeared normal. There were no erosions or ulcerations seen and the patient tolerated the procedure well. IMPRESSION: 1. Moderate gastritis. 2. Status post sleeve gastrectomy. 3. Biopsies of the duodenum, antrum body and GE junction. RECOMMENDATIONS: The findings of this examination were discussed with the patient and her daughter. Okay to resume diet. Okay to resume medications. Continue Protonix twice a day. Await pathology from biopsies. Avoid NSAID use.
[2020-01-24 10:28] VITALS: BP 122/74; PULSE 77
== END 2020-01-24 10:29 | disposition home or self-care (01) ==
LOC: ORWHC2ENDO 08:24
PROVIDERS: ATTEND Internal Medicine
DX: K29.50 Unspecified chronic gastritis without bleeding (principal); K21.0 Gastro-esophageal reflux disease with esophagitis; K31.9 Disease of stomach and duodenum, unspecified; I10 Essential (primary) hypertension; J45.909 Unspecified asthma, uncomplicated; G47.33 Obstructive sleep apnea (adult) (pediatric); E66.01 Morbid (severe) obesity due to excess calories; Z87.891 Personal history of nicotine dependence; Z79.899 Other long term (current) drug therapy; Z98.891 History of uterine scar from previous surgery; Z98.84 Bariatric surgery status; Z90.49 Acquired absence of other specified parts of digestive tract; Z98.890 Other specified postprocedural states; Z99.89 Dependence on other enabling machines and devices; Z68.44 Body mass index [BMI] 60.0-69.9, adult
CPT/HCPCS: 88305; 43239; J2704

== ENCOUNTER → 2020-04-23 | Outpatient (CLI) | payer BC ==
--- NOTE | 2020-04-24 05:31 | SFUN ---
SLEEP CENTER FOLLOW UP NOTE DATE OF SERVICE: 04/23/2020 This 54-year-old lady had been followed in Sleep Center for treatment of obstructive sleep apnea-hypopnea syndrome. Initially patient had sleep study which showed severe sleep apnea and then she underwent CPAP titration and subsequently received her CPAP equipment. Today is his first visit after she was started on treatment with CPAP. The patient trying to use CPAP equipment every night. She has history of claustrophobia, so we are using nasal pillow mask. To prevent opening mouth, patient using sleep fix for her lips to prevent opening her mouth. [place] Sleepiness Scale today he is 17, still in high range. I checked patient's CPAP unit. CPAP pressure is 12 cm of water. Usage is 24 out of 30 nights for more than 4 hours with average usage 5.4 hours per night, which considered to be acceptable compliance. Apnea-hypopnea index is only 0.6, which is absolutely perfect. I discussed results of sleep studies with patient. Diagnostic sleep study showed extremely severe sleep apnea syndrome with apnea-hypopnea index 58.1, in REM sleep 93.9. MEDICATIONS: Amlodipine, hydrochlorothiazide, olmesartan, pantoprazole, furosemide, potassium supplement, cyclobenzaprine PHYSICAL EXAMINATION: GENERAL: Patient in no distress. VITAL SIGNS: BP 155/86, HR 88, RR 15, weight 406, temperature 95, oxygen saturation at room air 98%. HEENT: PERRLA, EOMI. Evaluation of oropharynx low position of soft palate. Mallampati 3. NECK: Supple, no JVD. Thyroid is not palpable. LUNGS: Clear to percussion and to auscultation. Good air exchange. No wheezing or rhonchi. HEART: S1, S2 regular. No murmurs, gallops, or rubs. ABDOMEN: Obese. EXTREMITIES: No clubbing or cyanosis. MANUFACTURING TECH: Awake, alert, and oriented X3. Cranial nerves 2 to 7 intact. There is no fasciculation or atrophy. noted. No focal deficits observed. IMPRESSION: 1. Severe obstructive sleep apnea-hypopnea syndrome. Patient demonstrated good compliance with treatment, benefitting from treatment. 2. Patient still has some claustrophobia related problem with the mask. I discussed with her possibility to use desensitization with the mask. 3. Morbid obesity. 4. Hypertension. 5. Acid reflux. 6. History of fibromyalgia. 7. History of restless legs symptoms. 8. History of anemia. 9. Status post gastric sleeve surgery. 10.Status post uterus ablation. PLAN: 1. Patient will continue to use PAP equipment every night for the whole night. 2. Sleep hygiene with regular time in bed for at least 7-1/2 to 8 hours. 3. Precautions related to driving. No driving if feeling sleepiness. 4. I will maintain all necessary prescription for PAP supplies including mask, tube, filters. 5. Watching weight. 6. No driving if feeling sleepiness. 7. Follow-up visit in 6 months or earlier if patient has any problems. Thank you very much for allowing me to participate in management of your patient. Sincerely, Kiran Lyon MD, PhD, FAASM Diplomat of [place] Building Coordinator of [facility] [place] FIFI / STEVIEN: [id number] /
== END | disposition home or self-care (01) ==
LOC: SLEEP 16:51
PROVIDERS: ATTEND Internal Medicine
DX: G47.33 Obstructive sleep apnea (adult) (pediatric) (principal); E66.01 Morbid (severe) obesity due to excess calories; I10 Essential (primary) hypertension; K21.9 Gastro-esophageal reflux disease without esophagitis; Z87.39 Personal history of other diseases of the musculoskeletal system and connective tissue; Z99.89 Dependence on other enabling machines and devices; Z79.891 Long term (current) use of opiate analgesic; Z79.899 Other long term (current) drug therapy; Z86.79 Personal history of other diseases of the circulatory system; Z98.84 Bariatric surgery status

== ENCOUNTER → 2020-10-23 | Outpatient (CLI) | payer BC ==
--- NOTE | 2020-10-24 09:15 | SFUN ---
SLEEP CENTER FOLLOW UP NOTE DATE OF SERVICE: 10/23/2020 55-year-old lady has been followed in Sleep Center for treatment of obstructive sleep apnea-hypopnea syndrome. The patient continues to use her CPAP equipment every night for the whole night. This is the time for her ability to get new supplies. [place] Sleepiness Scale increased to 13. I checked her CPAP unit. CPAP pressure is 12 cm of water, usage is 28/30 nights and 20/30 nights for more than 4 hours, average usage 4.8 hours per night. Leak is 19 L/minute which is borderline. Apnea-hypopnea index is only 0.6, which is perfect. MEDICATIONS: Amlodipine 5 mg once a day. Furosemide 40 mg once a day, pantoprazole 40 mg once a day, Olmesartan 40 mg once a day. Hydrochlorothiazide 25 mg once a day. PHYSICAL EXAMINATION: GENERAL: Patient in no distress. VITAL SIGNS: BP 107/73, HR 83, RR 12. Height 5 feet 4 inches, weight 385, BMI 66. Temperature 98.1. Oxygen saturation at room air 96%. Oropharynx low position of soft palate. Mallampati 3. NECK: Supple, no JVD. Thyroid is not palpable. LUNGS: Clear to percussion and to auscultation. Good air exchange. No wheezing or rhonchi. HEART: S1, S2 regular. No murmurs, gallops, or rubs. ABDOMEN: Obese. Soft and nontender. Bowel sounds are present. No organomegaly appreciated. EXTREMITIES: No clubbing or cyanosis. ELECTRONIC ENGINEERING DRAFTSPERSON: Awake, alert, and oriented X3. Cranial nerves 2 to 7 intact. There is no fasciculation or atrophy. noted. No focal deficits observed. IMPRESSION: 1. Severe obstructive sleep apnea-hypopnea syndrome. Apnea-hypopnea index 58.1 with oxygen desaturation to 64.9%. The patient demonstrated good compliance with treatment benefitting from treatment. 2. Morbid obesity. Body mass index 66. 3. Presently not any mask problems related to claustrophobia which was in the past. 4. Hypertension. 5. Acid reflux. 6. History of fibromyalgia. 7. History of restless leg symptoms. 8. History of iron deficiency anemia. 9. Status post gastric sleeve surgery. 10.Status post uterus ablation. PLAN: 1. Be sure the position of the CPAP unit is correct, using distilled water and removing the water in the morning from the humidifier. 2. 1.Patient will continue to use PAP equipment every night for the whole night. 3. Sleep hygiene with regular time in bed for at least 7-1/2 to 8 hours. 4. Precautions related to driving. No driving if feeling sleepiness. 5. I will maintain all necessary prescription for PAP supplies including mask, tube, filters. 6. Watching weight. 7. Follow-up visit in 6 months or earlier if patient has any problems. I spent with the patient and the records more than 30 minutes. Thank you very much for allowing me to participate in management of your patient. Sincerely, Kiran Lyon MD, PhD, FAASM Diplomat of [employer] Occupational Health Nurse Supervisor of [facility]ODL / STEVIEN: [id number] /
== END ==
LOC: SLEEP 16:25
PROVIDERS: ATTEND Internal Medicine
DX: G47.33 Obstructive sleep apnea (adult) (pediatric) (principal); E66.01 Morbid (severe) obesity due to excess calories; I10 Essential (primary) hypertension; K21.9 Gastro-esophageal reflux disease without esophagitis; D64.9 Anemia, unspecified; G25.81 Restless legs syndrome; Z68.44 Body mass index [BMI] 60.0-69.9, adult; Z87.39 Personal history of other diseases of the musculoskeletal system and connective tissue; Z98.84 Bariatric surgery status; Z98.890 Other specified postprocedural states; Z99.81 Dependence on supplemental oxygen; Z87.891 Personal history of nicotine dependence; Z79.899 Other long term (current) drug therapy
CPT/HCPCS: 99211

== ENCOUNTER 2021-03-06 18:59 | Emergency (ER) | payer BC ==
[2021-03-06 19:07] VITALS: RESP 18
[2021-03-06] MEDS ORDERED: ONDANSETRON ODT 4 MG TAB PO STA (19:57)
--- NOTE | 2021-03-06 20:15 | ED ---
General Adult HPI - General Chief complaint: ENT Stated complaint: Poss chicken bone stuck in throat Time Seen by Provider: 03/06/21 19:40 Source: patient, RN notes reviewed Mode of arrival: ambulatory Limitations: no limitations - History of Present Illness Initial comments: 55-year-old female presents to the emergency department for evaluation of esop hageal irritation. Patient states her symptoms began last night while eating dinner. Patient states she was eating chicken and accidentally swallowed a bone though she is uncertain if the bone passed through with the food bolus. She had persistent acid reflux throughout the evening, but it resolved prior to awakening this morning. Patient states she developed nausea at work today and has had a lack of appetite. She states she is able to swallow water and has not had any excessive secretions. Patient reports a history of a gastric sleeve. Denies fever, chills, chest pain, shortness of breath, and abdominal pain; states she has not had a bowel movement today. - Related Data Home Medications Medication Instructions Recorded Confirmed hydroCHLOROthiazide [Hydrodiuril] 25 mg PO DAILY 04/04/14 01/24/20 Ergocalciferol (Vitamin D2) 50,000 unit PO PUENTE 09/21/18 01/24/20 [Drisdol (50,000 Iu)] Olmesartan Medoxomil [Benicar] 40 mg PO DAILY 09/21/18 01/24/20 amLODIPine [Norvasc] 5 mg PO DAILY 09/21/18 01/24/20 Acetaminophen/Caffeine [Excedrin 1 each PO DIRECTED PRN 01/22/20 01/24/20 Tension Headache Cplt] Cyclobenzaprine [Flexeril] 5 mg PO DIRECTED PRN 01/22/20 01/24/20 Furosemide [Lasix] 40 mg PO DAILY PRN 01/22/20 01/24/20 Ibuprofen [Motrin Ib] 400 - 600 mg PO DIRECTED PRN 01/22/20 01/24/20 Potassium Chloride [Potassium 10 meq PO DAILY PRN 01/22/20 01/24/20 Chloride ER] Previous Rx's Medication Instructions Recorded Pantoprazole [Protonix] 40 mg PO BID #60 tablet. 05/08/19 Allergies Allergy/AdvReac Type Severity Reaction Status Date / Time No Known Allergies Allergy Verified 03/06/21 19:07 Review of Systems ROS Statement: Those systems with pertinent positive or pertinent negative responses have been documented in the HPI. ROS Other: All systems not noted in ROS Statement are negative. Past Medical History Past Medical History: Asthma, GERD/Reflux, Hypertension, Sleep Apnea/CPAP/BIPAP Additional Past Medical History / Comment(s): Bilateral leg edema, seasonal asthma, bronchitis, KIKO but has not used her Cpap for years, chronic anemia-has had past iron infusions. History of Any Multi-Drug Resistant Organisms: MRSA Date of last positivie culture/infection: 04/06/08 MDRO Source:: Left Breast Past Surgical History: Appendectomy, Bariatric Surgery, Section, Cholecystectomy Additional Past Surgical History / Comment(s): Exploratory laparotomy/appendectomy, abdominal laproscopy following cholecystectomy d/t slow healling with eladia, EGD, colonoscopy, lap gastric sleeve. Past Anesthesia/Blood Transfusion Reactions: Previous Problems w/ Anesthesia, Motion Sickness, Postoperative Nausea & Vomiting (PONV) Additional Past Anesthesia/Blood Transfusion Reaction / Comment(s): Severe bronchospasm once after surgery. Pt has clausterphobia. Past Psychological History: No Psychological Hx Reported Past Alcohol Use History: None Reported Past Drug Use History: None Reported - Past Family History Father Additional Family Medical History / Comment(s): Father had heart disease. He is . Mother Family Medical History: Renal Disease Additional Family Medical History / Comment(s): Mother is Sister(s) Family Medical History: Cancer Additional Family Medical History / Comment(s): skin cancer General Exam Limitations: no limitations General appearance: alert, in no apparent distress Neck exam: Present: normal inspection. Absent: tenderness, meningismus, l ymphadenopathy Respiratory exam: Present: normal lung sounds bilaterally. Absent: respiratory distress, wheezes, rales, rhonchi, stridor Cardiovascular Exam: Present: regular rate, normal rhythm, normal heart sounds. Absent: systolic murmur, diastolic murmur, rubs, gallop, clicks GI/Abdominal exam: Present: soft, normal bowel sounds. Absent: distended, tenderness, guarding, rebound, rigid Neurological exam: Present: alert, oriented X3, CN II-XII intact Psychiatric exam: Present: normal affect, normal mood Skin exam: Present: warm, dry, intact, normal color. Absent: rash Course Vital Signs 03/06/21 03/06/21 19:04 21:15 Temperature 98 F 98.0 F Pulse Rate 66 68 Respiratory 18 18 Rate Blood Pressure 170/89 135/75 O2 Sat by Pulse 98 96 Oximetry Medical Decision Making - Medical Decision Making 55-year-old female presents to the emergency department for evaluation of esophageal discomfort. Patient states she had some difficulty swallowing food bolus yesterday at dinner which contained a chicken bone. Patient was concerned about possible esophageal obstruction, though able to swallow water today. Arrives to the emergency department feeling nauseous with decreased appetite. No significant physical exam findings noted. Patient was given oral Zofran with resolution of her nausea. Chest x-ray was obtained showing no foreign body. Results were discussed with patient. She verbalizes understanding and expresses readiness for discharge. Instructed to follow up with her primary care provider for recheck in the next 1-2 days. Return parameters were discussed in detail. This case was discussed with my attending Dr. Fraga. - Radiology Data Radiology results: report reviewed, image reviewed Two-view chest x-ray was obtained. Report was reviewed in its entirety. Impression per Dr. Brush is no active cardiomegaly disease. No sign of a foreign body. No change. Disposition Clinical Impression: Nausea, Foreign body sensation in throat Disposition: HOME SELF-CARE Condition: Stable Instructions (If sedation given, give patient instructions): Acute Nausea and Vomiting (ED) Additional Instructions: Consume mild, non-irritating foods and liquids. Follow-up with her primary care provider for recheck in the next 1-2 days. Return to the emergency department with any new, worsening, or concerning symptoms. Is patient prescribed a controlled substance at d/c from ED?: No Referrals: Nikki Turcios MD [Primary Care Provider] - 1-2 days Time of Disposition: 21:22
--- NOTE | 2021-03-06 20:51 | XR ---
EXAMINATION TYPE: XR chest 2V DATE OF EXAM: 03/06/2021 COMPARISON: 05/07/2019 HISTORY: Chicken bone TECHNIQUE: 3 views FINDINGS: Heart and mediastinum are within normal limits. Lungs are clear of infiltrate. There are no hilar masses. Costophrenic angles are clear. Bony thorax is intact. There is no sign of a radiopaque foreign body. IMPRESSION: No active cardiomegaly disease. No sign of a foreign body. No change.
[2021-03-06 21:16] VITALS: BP 135/75; PULSE 68; TEMP 98
[2021-03-06] MEDS ORDERED: MAG HYDROX/AL HYDROX/SIMETH 30 ML, HYOSCYAMINE ELIXIR 10 ML, LIDOCAINE VISCOUS 2% 10 ML PO STA ×3 (21:18)
[2021-03-06] MEDS ORDERED: ONDANSETRON 4 MG ODT STARTER PACK 2 TAB BTL PO STA (21:18)
== END 2021-03-06 21:50 | disposition home or self-care (01) ==
LOC: EC 18:59
DX: R11.0 Nausea (principal); R09.89 Other specified symptoms and signs involving the circulatory and respiratory systems; I10 Essential (primary) hypertension; K21.9 Gastro-esophageal reflux disease without esophagitis; J45.909 Unspecified asthma, uncomplicated; Z79.1 Long term (current) use of non-steroidal anti-inflammatories (NSAID); Z79.899 Other long term (current) drug therapy; Z90.49 Acquired absence of other specified parts of digestive tract; Z82.49 Family history of ischemic heart disease and other diseases of the circulatory system
CPT/HCPCS: 71046; 99283; S0119

== ENCOUNTER → 2021-04-29 | Outpatient (CLI) | payer BC ==
--- NOTE | 2021-04-29 19:40 | SFUN ---
SLEEP CENTER FOLLOW UP NOTE DATE OF SERVICE: 04/29/2021 55-year-old lady has been followed in Sleep Center for treatment of obstructive sleep apnea-hypopnea syndrome. The patient is using her CPAP equipment every night for the whole night. [place] Sleepiness Scale at the present time decreased to 8, comparing with the previous visit. The patient asked me questions about additional filter for the machine which she is putting between the holes and the mask. I checked her CPAP unit. Pressure is 12 cm of water. Usage is 30/30 nights and 28/30 nights for more than 4 hours. Leak is borderline 18 L/minute. Apnea-hypopnea index only 0.8 which is normal. MEDICATIONS: Amlodipine 5 mg once a day, furosemide 40 mg once a day, pantoprazole 40 mg once a day, Olmesartan 40 mg once a day, hydrochlorothiazide 25 mg once a day. PHYSICAL EXAMINATION: GENERAL: Patient in no distress. BP 127/69, HR 77, RR 18, height 5 feet 3-3/4 inches, weight 393.0 pounds temperature 96.5, oxygen saturation at room air 99%. Body mass index 68.0. Oropharynx: Low position of soft palate, Mallampati 3. NECK: Supple, no JVD. Thyroid is not palpable. LUNGS: Clear to percussion and to auscultation. Good air exchange. No wheezing or rhonchi. HEART: S1, S2 regular. No murmurs, gallops, or rubs. ABDOMEN: Obese. Soft and nontender. Bowel sounds are present. No organomegaly appreciated. EXTREMITIES: No clubbing or cyanosis. OFFSET ASSISTANT PRESS OPERATOR: Awake, alert, and oriented X3. Cranial nerves 2 to 7 intact. There is no fasciculation or atrophy. noted. No focal deficits observed. IMPRESSION: 1. Severe obstructive sleep apnea-hypopnea syndrome apnea-hypopnea index 58.1. The patient demonstrated 100% compliance with treatment and benefitting from treatment. 2. Morbid obesity, BMI 68. The patient increased her weight around 8 pounds compared to the previous visit. 3. Hypertension. 4. Acid reflux. 5. History of fibromyalgia. 6. History of restless leg symptoms. 7. History of iron deficiency anemia. 8. Status post gastric sleeve surgery. 9. Status post uterus ablation. PLAN: 1. I would not recommend patient to use additional filter for the installed between tube up and mask it could create some problems for regulation of pressure by the machine. 2. Patient will continue to use PAP equipment every night for the whole night. 3. Sleep hygiene with regular time in bed for at least 7-1/2 to 8 hours. 4. Precautions related to driving. No driving if feeling sleepiness. 5. I will maintain all necessary prescription for PAP supplies including mask, tube, filters. 6. Watching weight. 7. Follow-up visit in one year or earlier if patient has any problems. Thank you very much for allowing me to participate in management of your patient. Sincerely, Kiran Lyon MD, PhD, FAASM Diplomat of [place] [employer] Sleep Medicine Board of [place] [employer] Air Chipper of [facility] [place] [facility]ODL / JONO: [id number] /
== END ==
LOC: SLEEP 16:12
PROVIDERS: ATTEND Internal Medicine
DX: G47.33 Obstructive sleep apnea (adult) (pediatric) (principal); E66.01 Morbid (severe) obesity due to excess calories; I10 Essential (primary) hypertension; K21.9 Gastro-esophageal reflux disease without esophagitis; G25.81 Restless legs syndrome; D50.9 Iron deficiency anemia, unspecified; Z98.890 Other specified postprocedural states; Z98.84 Bariatric surgery status; Z87.39 Personal history of other diseases of the musculoskeletal system and connective tissue; Z68.44 Body mass index [BMI] 60.0-69.9, adult; Z99.89 Dependence on other enabling machines and devices; Z79.899 Other long term (current) drug therapy

== ENCOUNTER → 2021-09-24 | Outpatient (CLI) | payer BC ==
--- NOTE | 2021-09-25 14:10 | MM ---
Reason for exam: screening (asymptomatic). Last mammogram was performed 6 years and 11 months ago. History: Patient had first child at age 37. Physical Findings: A clinical breast exam by your physician is recommended on an annual basis and results should be correlated with mammographic findings. MG 3D Screening Mammo W/Cad Bilateral CC, MLO, and XCCL view(s) were taken. Prior study comparison: October 18, 2014, bilateral MG screening mammo w CAD. September 04, 2007, bilateral diagnostic digital mammog. The breast tissue is almost entirely fat. There is no discrete abnormality. No significant changes when compared with prior studies. ASSESSMENT: Negative, BI-RAD 1 RECOMMENDATION: Routine screening mammogram of both breasts in 1 year.
== END | disposition home or self-care (01) ==
LOC: RADMAMWWP 07:28
PROVIDERS: ATTEND Obstetrics & Gynecology
DX: Z12.31 Encounter for screening mammogram for malignant neoplasm of breast (principal)
CPT/HCPCS: 77063; 77067

== ENCOUNTER → 2023-04-20 | Outpatient (CLI) | payer BC ==
--- NOTE | 2023-04-20 09:16 | XR ---
EXAM TYPE: LUMBAR SPINE X RAY SERIES COMPARISON: NONE HISTORY: Pain TECHNIQUE: 4 views are submitted. FINDINGS: Alignment is anatomic. The pedicles are intact. The transverse processes are intact. Diffuse osteo penia. Facet arthropathy L4-5 and L5-S1. A grade 1 anterior listhesis at L4-5. Mild degenerative disc disease L5-S1 and L1-2. Vascular calcifications noted. There is a calcifications in the upper quadra nt which are nonspecific as well as surgical clips. IMPRESSION: 1. Diffuse osteopenia with multilevel mild degenerative disc disease. 2. Severe facet arthropathy L4-5 and L5-S1 with grade 1 anterolisthesis L4-5. Foraminal encroachment at both levels suspected..
== END | disposition home or self-care (01) ==
LOC: RADXRMAIN 08:01
PROVIDERS: ATTEND Family Medicine
DX: M43.16 Spondylolisthesis, lumbar region (principal); M51.16 Intervertebral disc disorders with radiculopathy, lumbar region; M85.88 Other specified disorders of bone density and structure, other site; M47.27 Other spondylosis with radiculopathy, lumbosacral region
CPT/HCPCS: 72110

== ENCOUNTER 2023-07-28 07:57 | Observation (INO) | payer BC ==
[2023-07-28 08:46] LABS: Basophils % (A) 0 %; Eosinophils # (A) 0.1 k/uL (0-0.7); Eosinophils % (A) 1 %; HCT 40.5 % (34.0-46.0); HGB 13.8 gm/dL (11.4-16.0); Lymphocytes # (A) 1.3 k/uL (1.0-4.8); Lymphocytes % (A) 17 %; MCHC 34.1 g/dL (31.0-37.0); MCV 88.1 fL (80.0-100.0); Mean Platelet Volume 8.8; Monocytes # (A) 0.4 k/uL (0-1.0); Monocytes % (A) 5 %; Neutrophils # (A) 5.7 k/uL (1.3-7.7); Neutrophils % (A) 75 %; Platelet Count 216 k/uL (150-450); RDW 13.1 % (11.5-15.5); WBC 7.6 k/uL (3.8-10.6)
[2023-07-28 08:53] LABS: Partial Thromboplastin Time 26.3 sec (22.0-30.0); Prothrombin Time 10.7 sec (10.0-12.5)
[2023-07-28 08:57] LABS: ALT 31 U/L (4-34); AST 28 U/L (14-36); African American GFR (CKD) >90 (>60 ml/min/1.73 sqM); Albumin 4.1 g/dL (3.5-5.0); Alkaline Phosphatase 151 U/L (38-126); Anion Gap 9 mmol/L; Blood Urea Nitrogen 17 mg/dL (7-17); Calcium 10.6 mg/dL (8.4-10.2); Carbon Dioxide 25 mmol/L (22-30); Chloride 104 mmol/L (98-107); Glucose 97 mg/dL (74-99); Lipase 153 U/L (23-300); Non-African American GFR(CKD) >90 (>60 ml/min/1.73 sqM); Potassium 3.8 mmol/L (3.5-5.1); Sodium 138 mmol/L (137-145); Total Bilirubin 0.8 mg/dL (0.2-1.3)
--- NOTE | 2023-07-28 09:20 | XR ---
EXAMINATION TYPE: XR chest 2V DATE OF EXAM: 07/28/2023 COMPARISON: 03/06/2021 HISTORY: 58-year-old female with chest pain TECHNIQUE: PA and lateral views FINDINGS: Heart upper limits of normal in size. Aorta and pulmonary vasculature within normal limits. No consol idation or pleural effusion. IMPRESSION: No acute cardiopulmonary process.
--- NOTE | 2023-07-28 09:30 | ED ---
Chest Pain HPI - General Chief Complaint: Chest Pain Stated Complaint: Chest Pain, hx of Heart Blockage Time Seen by Provider: 07/28/23 08:05 Source: patient Mode of arrival: ambulatory Limitations: no limitations - History of Present Illness Initial Comments: 58-year-old female with past medical history of morbid obesity, hypertension who presents to the emergency department reporting chest pain and shortness of breath. Patient states that she has had some recent symptoms of chest pain and had a cardiac CT performed 10 days ago at [facility]. She was found to have significantly elevated calcium score. States over the past 24 hours she has had worsening pressure in her chest with radiation into her left arm. States that she has shortness of breath with exertion. Denies fevers, chills or cough. No nausea or vomiting. She does not take an aspirin. No previous history of cardiac disease. No history of DVT or PE. No other alleviating, precipitating or modifying factors - Related Data Home Medications Medication Instructions Recorded Confirmed Olmesartan Medoxomil [Benicar] 40 mg PO DAILY 09/21/18 07/28/23 Furosemide [Lasix] 20 mg PO DAILY 01/22/20 07/28/23 Potassium Chloride [Potassium 10 meq PO DAILY 01/22/20 07/28/23 Chloride ER] Pantoprazole [Protonix] 40 mg PO DAILY 07/28/23 07/28/23 Prednisolone Acetate/Pf 1 drop BOTH EYES BID 07/28/23 07/28/23 [Prednisolone Acet 1% Eye Drop] Semaglutide [Ozempic] 2 mg SQ MO 07/28/23 07/28/23 Triamterene-Hctz 37.5-25Mg 1 tab PO DAILY 07/28/23 07/28/23 [Maxzide 37.5-25] Vitamin D3(Unknown Dose) 1 tab PO DAILY 07/28/23 07/28/23 cycloSPORINE 0.05% OPHTH SOLN 1 drop BOTH EYES BID 07/28/23 07/28/23 [Restasis] Allergies Allergy/AdvReac Type Severity Reaction Status Date / Time No Known Allergies Allergy Verified 03/06/21 19:07 Review of Systems ROS Statement: Those systems with pertinent positive or pertinent negative responses have been documented in the HPI. ROS Other: All systems not noted in ROS Statement are negative. Past Medical History Past Medical History: Asthma, GERD/Reflux, Hypertension, Sleep Apnea/CPAP/BIPAP Additional Past Medical History / Comment(s): Bilateral leg edema, seasonal asthma, bronchitis, KIKO but has not used her Cpap for years, chronic anemia-has had past iron infusions. History of Any Multi-Drug Resistant Organisms: MRSA Date of last positivie culture/infection: 04/06/08 MDRO Source:: Left Breast Past Surgical History: Appendectomy, Bariatric Surgery, Section, Cholecystectomy Additional Past Surgical History / Comment(s): Exploratory laparo isi/appendectomy, abdominal laproscopy following cholecystectomy d/t slow healling with eladia, EGD, colonoscopy, lap gastric sleeve. Past Anesthesia/Blood Transfusion Reactions: Previous Problems w/ Anesthesia, Motion Sickness, Postoperative Nausea & Vomiting (PONV) Additional Past Anesthesia/Blood Transfusion Reaction / Comment(s): Severe bronchospasm once after surgery. Pt has clausterphobia. Past Psychological History: No Psychological Hx Reported Smoking Status: Never smoker Past Alcohol Use History: Occasional Past Drug Use History: None Reported - Past Family History Father Additional Family Medical History / Comment(s): Father had heart disease. He is . Mother Family Medical History: Renal Disease Additional Family Medical History / Comment(s): Mother is Sister(s) Family Medical History: Cancer Additional Family Medical History / Comment(s): skin cancer General Exam Limitations: no limitations General appearance: alert, in no apparent distress Head exam: Present: atraumatic, normocephalic, normal inspection Eye exam: Present: normal appearance, PERRL, EOMI. Absent: scleral icterus, conjunctival injection, periorbital swelling ENT exam: Present: normal exam, mucous membranes moist Neck exam: Present: normal inspection. Absent: tenderness, meningismus, lymphadenopathy Respiratory exam: Present: normal lung sounds bilaterally. Absent: respiratory distress, wheezes, rales, rhonchi, stridor Cardiovascular Exam: Present: regular rate, normal rhythm, normal heart sounds. Absent: systolic murmur, diastolic murmur, rubs, gallop, clicks GI/Abdominal exam: Present: soft, normal bowel sounds. Absent: distended, tenderness, guarding, rebound, rigid Extremities exam: Present: normal inspection, full ROM, normal capillary refill. Absent: tenderness, pedal edema, joint swelling, calf tenderness Back exam: Present: normal inspection Neurological exam: Present: alert, oriented X3, CN II-XII intact Psychiatric exam: Present: normal affect, normal mood Skin exam: Present: warm, dry, intact, normal color. Absent: rash Course Vital Signs 07/28/23 07/28/23 07/28/23 08:00 08:48 09:49 Temperature 97.6 F Pulse Rate 82 80 Pulse Rate [ 78 Left Radial] Respiratory 20 18 Rate Blood Pressure 128/81 133/86 O2 Sat by Pulse 96 99 Oximetry Chest Pain MDM - MDM Was pt. sent in by a medical professional or institution (, PA, AIRVEYOR OPERATOR, urgent ca re, hospital, or [place] health care facility...) When possible be specific @ -No Did you speak to anyone other than the patient for history (EMS, parent, family, police, friend...)? What history was obtained from this source @ -No Did you review nursing and triage notes (agree or disagree)? Why? @ -I reviewed and agree with nursing and triage notes Were old charts reviewed (outside hosp., previous admission, EMS record, old EKG, old radiological studies, urgent care reports/EKG's, [place] health care facility records)? Report findings @ -I reviewed the patient's calcium score from [place] that she carries with her Differential Diagnosis (chest pain, altered mental status, abdominal pain women, abdominal pain men, vaginal bleeding, weakness, fever, dyspnea, syncope, headache, dizziness, GI bleed, back pain, seizure, CVA, palpatations, mental health, musculoskeletal)? @ -Differential Chest Pain: Stable Angina, Unstable Angina, STEMI, NSTEMI Aortic Dissection, Pneumothorax, Musculoskeletal, Esophageal Spasm GERD, Cholecystitis, Pancreatitis, Zoster, this is not meant to be an all-inclusive list. EKG interpreted by me (3pts min.). @ -Yes and demonstrates sinus rhythm with a rate of 76. AL interval 170. QRS 97. QTc of 417. No acute ST segment elevations or depressions X-rays interpreted by me (1pt min.). @ -Yes and demonstrates no acute process CT interpreted by me (1pt min.). @ -None done U/S interpreted by me (1pt. min.). @ -None done What testing was considered but not performed or refused? (CT, X-rays, U/S, labs)? Why? @ -None What meds were considered but not given or refused? Why? @ -None Did you discuss the management of the patient with other professionals (professionals i.e. , PA, AIRVEYOR OPERATOR, lab, RT, psych nurse, protective services social worker, auto transport driver, teacher, principal gifts officer, social work case manager)? Give summary @ -Spoke with Dr. Bernal who will admit the patient Was smoking cessation discussed for >3mins.? @ -No Was critical care preformed (if so, how long)? @ -No Were there social determinants of health that impacted care today? How? (Homelessness, low income, unemployed, alcoholism, drug addiction, transportation, low edu. Level, literacy, decrease access to med. care, residential, rehab)? @ -No Was there de-escalation of care discussed even if they declined (Discuss DNR or withdrawal of care, Hospice)? DNR status @ -No What co-morbidities impacted this encounter? (DM, HTN, Smoking, COPD, CAD, Cancer, CVA, ARF, Chemo, Hep., AIDS, mental health diagnosis, sleep apnea, morbid obesity)? @ -Hypertension, hyperlipidemia, prediabetic Was patient admitted / discharged? Hospital course, mention meds given and route, prescriptions, significant lab abnormalities, going to OR and other pertinent info. @ -Admitted. Upon arrival patient was placed into room 3. Thorough history and physical exam was performed. I did review the patient's abnormal CT scan from [facility]. IV is established. Laboratory studies are conducted. Chest x-ray was performed. Patient was given an aspirin and Nitropaste was applied to the chest. Results of the laboratory testing are discussed with the patient. Due to abnormal CT scoring I did recommend admission for which the patient was agreeable. Spoke with Dr. Bernal who agreed to admit the patient Undiagnosed new problem with uncertain prognosis? @ -Yes Drug Therapy requiring intensive monitoring for toxicity (Heparin, Nitro, Insulin, Cardizem)? @ -No Were any procedures done? @ -No Diagnosis/symptom? @ -Acute chest pain, possible ACS, abnormal cardiac CT Acute, or Chronic, or Acute on Chronic? @ -Acute Uncomplicated (without systemic symptoms) or Complicated (systemic symptoms)? @ -Complicated Side effects of treatment? @ -No Exacerbation, Progression, or Severe Exacerbation? @ -No Poses a threat to life or bodily function? How? (Chest pain, [place], [place], pneumonia, PE, COPD, DKA, ARF, appy, cholecystitis, CVA, Diverticulitis, Homicidal, Suicidal, threat to staff... and all critical care pts) @ -Yes as patient is having chest pain Disposition Clinical Impression: Chest pain, Obesity, Hypertension Disposition: ADMITTED IP TO THIS [facility] Condition: Stable Is patient prescribed a controlled substance at d/c from ED?: No Time of Disposition: 09:30 Decision to Admit Reason: Admit from EC Decision Date: 07/28/23 Decision Time: 09:30
[2023-07-28] MEDS ORDERED: NALOXONE 0.4 MG/ML 1 ML VIAL IV PRN (09:31)
[2023-07-28] MEDS: NITROGLYCERIN OINT 1 INCH/GM PACKET TOPICAL STA (09:40)
[2023-07-28] MEDS: ASPIRIN 81 MG PO STA (09:41)
--- NOTE | 2023-07-28 10:12 | P.HPIM ---
History of Present Illness H&P Date: 07/28/23 History of Presenting Illness: Patient is a very pleasant 58-year-old female with a past medical history of hypertension, hyperlipidemia, fibromyalgia, and morbid obesity with BMI of 56.6 kg/m. She presented to the emergency department with a chief complaint of chest pain and shortness of breath. She states she has been experiencing intermittent chest pain off and on the past month and has been under outpatient evaluation by her PCP and was found to have a significantly elevated calcium score placing her at high risk for coronary artery disease. Patient states she was scheduled to see tag clerk, Dr. Donovan on Tuesday but reports this morning her chest pain seemed to be experiencing worsening chest pain/pressure which was now newly accompanied by shortness of breath and exertional dyspnea. She denies having any recent illnesses, fevers, chills, headache, lightheadedness, dizziness, palpitations, cough or congestion, nausea, vomiting, or experiencing any worsening swelling in her lower extremities. She underwent full evaluation in the emergency department. Vital signs upon arrival show blood pressure 128/81, heart rate 82, respiratory rate 20, temp 97.6 F, and SpO2 of 96% on room air. EKG was completed showing normal sinus rhythm at 76 bpm with no sign ificant T wave or ST abnormalities to show signs of acute ischemia. Chest x-ray completed negative for acute cardiopulmonary process. Labs completed and reviewed. CBC, BMP, and coagulation profile were unremarkable. Calcium slightly elevated at 10.6. Magnesium normal findings at 2.0. Liver profile showing slightly elevated alkaline phosphatase of 151 otherwise normal findings. Troponin negative at less than 0.012. Patient admitted under our services with consultation to cardiology. Review of systems: Pertinent positives and negatives as discussed in HPI, a complete review of systems was performed and all other systems are negative. Physical exam: Vital signs reviewed and stable. General: Nontoxic, no distress and appears stated age. Derm: Skin warm and dry, normal coloration for ethnicity. Head: Atraumatic, normocephalic and symmetric. Eyes: EOMs intact, no lid lag, and anicteric sclera Mouth: no lip lesions, mucus membranes moist Cardiovascular: regular rate and rhythm with normal S1S2, no murmur, positive posterior tibial pulses bilaterally, and cap refill < 2 seconds. Lungs: Respirations even, regular, and unlabored on room air. Lungs CTA bilaterally, no rhonchi, no rales, no wheezing, and no accessory muscle usage. Abdominal: soft, nontender to palpation, no guarding, no appreciable organomegaly Ext: ROM intact. No gross muscle atrophy, no edema, no contractures Neuro: Speech clear, face symmetrical and CN II-XII grossly intact with no noted focal neuro deficits Psych: Alert and oriented to person, place, time, and situation. Appropriate and pleasant affect. Assessment and Plan of Care: Chest pain and exertional dyspnea, rule out acute coronary event Hypertension Hyperlipidemia Fibromyalgia -Cardiology consulted, appreciate recommendations -Telemetry monitoring -Trend troponins -Cardiac diet, NPO at midnight -Patient to continue aspirin 81 mg daily, atorvastatin 40 mg nightly, Lasix 20 mg daily, losartan 150 mg daily, and Dyazide 37.5-25 mg daily. -Echocardiogram to be completed Morbid obesity with BMI 56.6 kg/m -Recommend outpatient structured weight management program. The patient is admitted with an anticipated less than 2 midnight stay for evaluation of chest pain and exertional dyspnea CODE STATUS: Full code DVT prophylaxis: Heparin Anticipated discharge date: 24 to [address]: Home Patient was seen independently by Nurse Practitioner. This document was prepared using [employer] dictation software. Please allow for errors in sort manager while rare they do occur. Jc Mcclellan NP rendered care for this patient independently, reviewed the findings and plan as documented in the note above. I did not physically speak with or examine the patient on this date. Past Medical History Past Medical History: Asthma, GERD/Reflux, Hypertension, Sleep Apnea/CPAP/BIPAP Additional Past Medical History / Comment(s): Bilateral leg edema, seasonal asthma, bronchitis, KIKO but has not used her Cpap for years, chronic anemia-has had past iron infusions. History of Any Multi-Drug Resistant Organisms: MRSA Date of last positivie culture/infection: 04/06/08 MDRO Source:: Left Breast Past Surgical History: Appendectomy, Bariatric Surgery, Section, Cholecystectomy Additional Past Surgical History / Comment(s): Exploratory laparotomy/appendectomy, abdominal laproscopy following cholecystectomy d/t slow healling with eladia, EGD, colonoscopy, lap gastric sleeve. Past Anesthesia/Blood Transfusion Reactions: Previous Problems w/ Anesthesia, Motion Sickness, Postoperative Nausea & Vomiting (PONV) Additional Past Anesthesia/Blood Transfusion Reaction / Comment(s): Severe bronchospasm once after surgery. Pt has clausterphobia. Past Psychological History: No Psychological Hx Reported Smoking Status: Never smoker Past Alcohol Use History: Occasional Past Drug Use History: None Reported - Past Family History Father Additional Family Medical History / Comment(s): Father had heart disease. He is . Mother Family Medical History: Renal Disease Additional Family Medical History / Comment(s): Mother is Sister(s) Family Medical History: Cancer Additional Family Medical History / Comment(s): skin cancer Medications and Allergies Home Medications Medication Instructions Recorded Confirmed Type Olmesartan Medoxomil [Benicar] 40 mg PO DAILY 09/21/18 07/28/23 History Furosemide [Lasix] 20 mg PO DAILY 01/22/20 07/28/23 History Potassium Chloride [Potassium 10 meq PO DAILY 01/22/20 07/28/23 History Chloride ER] Pantoprazole [Protonix] 40 mg PO DAILY 07/28/23 07/28/23 History Prednisolone Acetate/Pf 1 drop BOTH EYES BID 07/28/23 07/28/23 History [Prednisolone Acet 1% Eye Drop] Semaglutide [Ozempic] 2 mg SQ MO 07/28/23 07/28/23 History Triamterene-Hctz 37.5-25Mg 1 tab PO DAILY 07/28/23 07/28/23 History [Maxzide 37.5-25] Vitamin D3(Unknown Dose) 1 tab PO DAILY 07/28/23 07/28/23 History cycloSPORINE 0.05% OPHTH SOLN 1 drop BOTH EYES BID 07/28/23 07/28/23 History [Restasis] Allergies Allergy/AdvReac Type Severity Reaction Status Date / Time No Known Allergies Allergy Verified 03/06/21 19:07 Physical Exam Osteopathic Statement: *. No significant issues noted on an osteopathic structu ral exam other than those noted in the History and Physical/Consult. Vitals: Vital Signs Temp Pulse Pulse Resp BP Pulse Ox 07/28/23 09:49 80 18 133/86 99 07/28/23 08:48 78 07/28/23 08:00 97.6 F 82 20 128/81 96 Intake and Output 07/27/23 07/28/23 07/28/23 22:59 06:59 14:59 Other: Weight 149.685 kg Results CBC & Chem 7: 07/28/23 08:20 07/28/23 08:20 Labs: Abnormal Lab Results - Last 24 Hours (Table) 07/28/23 Range/Units 08:20 Calcium 10.6 H (8.4-10.2) mg/dL Alkaline Phosphatase 151 H (38-126) U/L
[2023-07-28] MEDS ORDERED: NITROGLYCERIN SL TABS 0.4 MG TAB SUBLINGUAL PRN (10:51)
[2023-07-28] MEDS ORDERED: ALPRAZolam 0.25 MG TAB PO PRN (10:51)
[2023-07-28] MEDS ORDERED: SODIUM CHLORIDE 0.9% 1,000 ML in EMPTY BAG 1 BAG IV SCH (11:00)
[2023-07-28] MEDS: POTASSIUM CHLORIDE ER 10 MEQ TAB.ER.PRT PO SCH (11:02)
[2023-07-28] MEDS: TRIAMTERENE-HCTZ 37.5-25MG 1 EACH CAP PO SCH (11:02)
[2023-07-28] MEDS: FUROSEMIDE 20 MG TAB PO SCH (11:02)
[2023-07-28] MEDS: PANTOPRAZOLE 40 MG TABLET PO SCH (11:02)
[2023-07-28] MEDS: LOSARTAN 50 MG TAB PO SCH (11:02)
[2023-07-28] MEDS ORDERED: MELATONIN 3 MG TABLET PO PRN (15:47)
--- NOTE | 2023-07-28 17:29 | CA ---
Transthoracic Echo Report Name: Estella Zee Age: 58 Gender: F : 1965 Exam Date: 07/28/2023 16:23 Exam Location: [place] [facility] Ht (in): 64 Wt (lb): 330 Ordering Physician: Candy Edwards Attending/Referring Phys: [id number], Grace Glass Inspector Christine Carroll RCS Procedure CPT: Indications: LVF Cardiac Hx: Technical Quality: Technically difficult study Contrast 1: Definity Total Dose (mL): 2 Contrast 2: Total Dose (mL): MEASUREMENTS (Male / Female) Normal Values 2D ECHO LV Diastolic Volume MOD BP 103.4 cm??? 67 - 155 / 56 - 104 cm??? LV Systolic Volume MOD BP 28.1 cm??? 22 - 58 / 19 - 49 cm??? LV Ejection Fraction MOD BP 72.8 % >= 55 % LV Cardiac Index MOD BP 1814.3 cm???/min???m??? LV Diastolic Volume MOD 4C 111.6 cm??? LV Systolic Volume MOD 4C 29.8 cm??? LV Ejection Fraction MOD 4C 73.3 % LV Cardiac Index MOD 4C 1969.5 cm???/min???m??? LV Diastolic Length 4C 8.0 cm LV Systolic Length 4C 6.2 cm LV Diastolic Volume MOD 2C 91.0 cm??? LV Systolic Volume MOD 2C 26.6 cm??? LV Ejection Fraction MOD 2C 70.8 % LV Cardiac Index MOD 2C 1551.7 cm???/min???m??? LV Diastolic Length 2C 7.6 cm LV Systolic Length 2C 6.2 cm LA Volume 39.2 cm??? 18 - 58 / 22 - 52 cm??? LA Volume Index 14.5 cm???/m??? 16 - 28 cm???/m??? DOPPLER AV Peak Velocity 193.1 cm/s AV Peak Gradient 14.9 mmHg AV Mean Velocity 135.4 cm/s AV Mean Gradient 8.1 mmHg AV Velocity Time Integral 39.4 cm LVOT Peak Velocity 126.2 cm/s LVOT Peak Gradient 6.4 mmHg LVOT Velocity Time Integral 23.6 cm Mitral E Point Velocity 97.4 cm/s Mitral A Point Velocity 69.7 cm/s Mitral E to A Ratio 1.4 MV Deceleration Time 225.1 ms MV E' Velocity 7.6 cm/s Mitral E to MV E' Ratio 12.7 FINDINGS Left Ventricle Left ventricular ejection fraction is estimated at 55-60 %. Left ventricular wall thickness normal. Left ventricular cavity size normal. No obvious regional wall motion abnormalities. Right Ventricle Normal right ventricular size and function. Unable to determine right ventricular systolic function. Right Atrium Normal right atrial size. Left Atrium Normal left atrial size. Mitral Valve Structurally normal mitral valve. No mitral stenosis, regurgitation or prolapse. Aortic Valve Trileaflet aortic valve. No aortic valve stenosis or regurgitation. Tricuspid Valve Structurally normal tricuspid valve. No tricuspid regurgitation. No tricuspid stenosis. Pulmonic Valve Pulmonic valve not well visualized. No pulmonic stenosis. No pulmonic regurgitation. Pericardium No pericardial effusion. Aorta Aortic annulus normal. Ascending aorta not well visualized. CONCLUSIONS Normal LV function Previewed by: Dr. Armin Bush MD (Electronically Signed) Final Date: 28 July 2023 17:29
[2023-07-28] MEDS: HEPARIN SODIUM,PORCINE 5,000 UNIT/ML 1 ML VIAL SQ SCH (18:21)
[2023-07-28] MEDS: ATORVASTATIN 40 MG TAB PO SCH (19:55)
[2023-07-28] MEDS: cycloSPORINE 0.05% OPHTH 0.4 ML DROPERETTE BOTH EYES SCH (19:56)
[2023-07-28] MEDS: prednisoLONE ACETATE 1% OPHTH DROPS 5 ML BTL BOTH EYES SCH (19:56)
[2023-07-28] MEDS: ALPRAZolam 0.5 MG TAB PO PRN (21:13)
[2023-07-29] MEDS: SODIUM CHLORIDE 0.9% 1,000 ML in EMPTY BAG 1 BAG IV SCH (00:36)
[2023-07-29] MEDS: ATORVASTATIN 80 MG TAB PO ONE (05:05)
[2023-07-29] MEDS: ASPIRIN 325 MG TAB PO ONE (05:05)
[2023-07-29] MEDS ORDERED: HEPARIN SODIUM,PORCINE 10,000 UNIT in SODIUM CHLORIDE 0.9% 1,000 ML IRRIGATION PRN (07:00)
[2023-07-29] MEDS ORDERED: HEPARIN SODIUM,PORCINE (1 ML) 2,500 UNIT in SODIUM CHLORIDE 0.9% 250 ML IRRIGATION PRN (07:00)
[2023-07-29] MEDS ORDERED: fentaNYL (PF) 50 MCG/ML 2 ML AMP ONE (08:50)
[2023-07-29] MEDS ORDERED: LOSARTAN 50 MG TAB PO SCH (09:00)
[2023-07-29] MEDS ORDERED: FUROSEMIDE 20 MG TAB PO SCH (09:00)
[2023-07-29 09:02] LABS: BUN/Creat Ratio 26.12 Ratio (12.00-20.00); Blood Urea Nitrogen 20.9 mg/dL (9.0-27.0); Calcium 10.7 mg/dL (8.7-10.3); Carbon Dioxide 27.3 mmol/L (21.6-31.8); Chloride 99 mmol/L (96-109); Glucose 94 mg/dL (70-110); Sodium 138 mmol/L (135-145)
[2023-07-29] MEDS: MIDAZOLAM 2 MG/2 ML VIAL IVP ONE (09:09)
[2023-07-29] MEDS: VERAPAMIL SYRINGE (5 MG/10 ML) INTRAARTER ONE (09:10)
[2023-07-29] MEDS: fentaNYL (PF) 50 MCG/1 ML VIAL IVP ONE ×2 (09:10)
[2023-07-29] MEDS: IV FLUID CONTINUATION 1,000 ML IV ONE (09:10)
[2023-07-29] MEDS: LIDOCAINE 1% INJ 10MG/ML (30 ML VIAL-PF) SQ ONE (09:10)
[2023-07-29] MEDS ORDERED: HEPARIN SODIUM 1,000 UN/ML (10ML VL) ONE (09:16)
[2023-07-29] MEDS: HEPARIN SODIUM 1,000 UN/ML (10ML VL) IV ONE (09:17)
[2023-07-29] MEDS: IOPAMIDOL-370 100ML BTL INJ ONE (09:43)
[2023-07-29] MEDS ORDERED: ISOSORBIDE MONONITRATE ER 30 MG TAB.ER.24H PO SCH (09:45)
[2023-07-29] MEDS ORDERED: RX INFO: IV CONTRAST WAS GIVEN 1 EACH MISC MISCELLANE PRN (09:48)
--- NOTE | 2023-07-29 09:53 | CC ---
CARDIAC CATHETERIZATION REPORT INDICATION: Unstable angina. PROCEDURE NOTE: After obtaining informed consent, left heart catheterization and coronary angiogram were performed via the right radial artery using standard Mercedes catheters. The patient tolerated the procedure well without any obvious immediate complications. The patient received moderate conscious sedation. Total sedation time was 18 minutes. The patient's right radial artery access was obtained using Seldinger technique, 6- Italian sheath was placed. Catheters and wires were floated into the ascending aorta under fluoroscopic guidance. The patient received verapamil and heparin per protocol and a TR band will be used for hemostasis. FINDINGS: 1. Hemodynamics: Left ventricular end-diastolic pressure is 6 to 8 mm there is no significant gradient across the aortic valve. 2. Left ventriculogram: Left ventriculogram is not performed. 3. Angiographic data: a.Right coronary artery: Right coronary artery is a large dominant vessel and is free of significant stenosis. Left main coronary artery is a normal-sized vessel and is free of stenosis, divides into left anterior descending coronary artery and circumflex coronary artery. Circumflex coronary artery and its branches are free of significant stenosis. Mid LAD shows a focal 30% to 40% stenosis. CONCLUSION: Mild nonobstructive disease involving mid LAD. PLAN: I reviewed angiographic data with Dr. Ryan, the on-call tying machine operator, and will manage the patient with optimal medical therapy including aspirin, nitrates, statins, and beta-blockers, and work aggressively on risk factor modification, particularly lose weight, exercise regularly. MMODL / IJN: [id number] /
[2023-07-29] MEDS ORDERED: SODIUM CHLORIDE 0.9% 1,000 ML IV SCH (10:00)
--- NOTE | 2023-07-29 10:14 | LTR ---
Dear Chay: I performed cardiac catheterization on Estella Zee, detailed catheterization note is enclosed in records. In brief, cardiac catheterization revealed a mild nonobstructive disease involving mid LAD. Her management is going to be in the form of medical therapy and risk factor modification. She has a strong family history of premature coronary artery disease and elevated calcium score in a CT scan. Thank you for giving me the privilege of participating in the care of this pleasant lady. MMFARAZ / IJN: [id number] /
[2023-07-29 11:13] LABS: Basophils % (A) 0.4 %; Eosinophils % (A) 1.3 %; HCT 41.8 % (37.2-46.3); HGB 13.7 g/dL (12.0-15.0); Lymphocytes # (A) 1.41 X 10*3/uL (0.90-5.00); Lymphocytes % (A) 18.8 %; MCH 29.5 pg (27.0-32.0); MCHC 32.8 g/dL (32.0-37.0); MCV 90.1 FL (80.0-97.0); Mean Platelet Volume 12.2 FL (9.5-12.2); Monocytes # (A) 0.49 X 10*3/uL (0.20-1.00); Monocytes % (A) 6.5 %; NRBC Per 100 WBC 0 X 10*3/uL (0.00-0.01); Neutrophils # (A) 5.46 X 10*3/uL (1.80-7.70); Neutrophils % (A) 72.6 %; Platelet Count 252 X 10*3/uL (140-440); RBC 4.64 X 10*6/uL (4.10-5.20); RDW 13.1 % (11.5-14.5); WBC 7.52 X 10*3/uL (4.50-10.00)
[2023-07-29 11:14] LABS: Basophils # (A) 0.03 X 10*3/uL (0.00-0.10)
--- NOTE | 2023-07-29 13:38 | P.DS ---
Providers Date of admission: 07/28/23 09:31 Expected date of discharge: 07/29/23 Attending physician: Quin Springer DO Consults: 07/28/23 09:31 Consult Physician Urgent Consulting Provider: [facility] Consult Reason/Comments: acute chest pain, possible acs, recent abn cardiac ct Do you want consulting provider notified?: Yes Primary care physician: Chay Cerrato [facility] Course: Discharge Diagnosis: Chest pain and exertional dyspnea, acute coronary event ruled out. Troponins negative. EKG normal sinus rhythm. Patient was taken for cardiac cath showing mild nonobstructive disease of mid LAD reported at 30 to 40% stenosis otherwise normal findings. Cardiology recommending optimizing medical management. Echo cardiogram preserved. Report difficulty performing with no significant valvular or structural abnormalities. Olmesartan and Maxide were reviewed with patient with greater than losartan 25 mg daily, Imdur 30 mg daily, aspirin 81 mg daily, atorvastatin 40 mg nightly, and sublingual nitroglycerin tablets. Patient cleared from cardiac perspective and is medically stable for discharge at this time. Patient to follow-up outpatient with PCP in 1 to 2 days and with cardiology in 1 week. Hypertension Hyperlipidemia Fibromyalgia Morbid obesity with BMI 56.6 kg/m. Recommend outpatient structured weight management program. Mild hypercalcemia, recommend outpatient follow-up with agricultural produce washer for further testing/evaluation of slightly elevated calcium levels. Hospital Course: Patient is a very pleasant 58-year-old female with a past medical history of hypertension, hyperlipidemia, fibromyalgia, and morbid obesity with BMI of 56.6 kg/m. She presented to the emergency department with a chief complaint of chest pain and shortness of breath. She states she has been experiencing intermittent chest pain off and on the past month and has been under outpatient evaluation by her PCP and was found to have a significantly elevated calcium score placing her at high risk for coronary artery disease. Patient states she was scheduled to see brim presser, Dr. Donovan on Tuesday but reports this morning her chest pain seemed to be experiencing worsening chest pain/pressure which was now newly accompanied by shortness of breath and exertional dyspnea. She denies having any recent illnesses, fevers, chills, headache, lightheadedness, dizziness, palpitations, cough or congestion, nausea, vomiting, or experiencing any worsening swelling in her lower extremities. She underwent full evaluation in the emergency department. Vital signs upon arrival show blood pressure 128/81, heart rate 82, respiratory rate 20, temp 97.6 F, and SpO2 of 96% on room air. EKG was completed showing normal sinus rhythm at 76 bpm with no significant T wave or ST abnormalities to show signs of acute ischemia. Chest x-ray completed negative for acute cardiopulmonary process. Labs completed and reviewed. CBC, BMP, and coagulation profile were unremarkable. Calcium slightly elevated at 10.6. Magnesium normal findings at 2.0. Liver profile showing slightly elevated alkaline phosphatase of 151 otherwise normal findings. Troponin negative at less than 0.012. Patient admitted under our services with consultation to cardiology. Troponins trended overnight all negative at less than 0.012 x 3 draws. Cardiology evaluated and took patient for cardiac cath. Cardiac cath revealing mild nonobstructive disease of mid LAD reported at 30 to 40% stenosis otherwise normal findings. Cardiology recommending optimizing medical management. Olmesartan and Maxide were reviewed with patient with greater than losartan 25 mg daily, Imdur 30 mg daily, aspirin 81 mg daily, atorvastatin 40 mg nightly, and sublingual nitroglycerin tablets. Patient cleared from cardiac perspective and is medically stable for discharge at this time. Patient to follow-up outpatient with PCP in 1 to 2 days and with cardiology in 1 week. Physical exam: Vital signs reviewed and stable. General: Nontoxic, no distress and appears stated age. Derm: Skin warm and dry, normal coloration for ethnicity. Head: Atraumatic, normocephalic and symmetric. Eyes: EOMs intact, no lid lag, and anicteric sclera Mouth: no lip lesions, mucus membranes moist Cardiovascular: regular rate and rhythm with normal S1S2, no murmur, positive posterior tibial pulses bilaterally, and cap refill < 2 seconds. Lungs: Respirations even, regular, and unlabored on room air. Lungs CTA bilaterally, no rhonchi, no rales, no wheezing, and no accessory muscle usage. Abdominal: soft, nontender to palpation, no guarding, no appreciable organomegaly Ext: ROM intact. No gross muscle atrophy, no edema, no contractures Neuro: Speech clear, face symmetrical and CN II-XII grossly intact with no noted focal neuro deficits Psych: Alert and oriented to person, place, time, and situation. Appropriate and pleasant affect. A total of 34 minutes of time were spent preparing this complex discharge summary. Pt was discharged on 07/29/2023 at 1:26 PM. Patient was seen independently by Nurse Practitioner. This document was prepared using [employer] dictation software. Please allow for errors in assault amphibious vehicle officer while rare they do occur. Jc Mcclellan NP rendered care for this patient independently, reviewed the findings and plan as documented in the note above. I did not physically speak with or examine the patient on this date. Patient Condition at Discharge: Stable Plan - Discharge Summary Discharge Rx Participant: No New Discharge Prescriptions: New Losartan [Cozaar] 25 mg PO DAILY #90 tab Isosorbide Mononitrate ER [Imdur] 30 mg PO DAILY #90 tab Aspirin 81 mg PO DAILY tab Atorvastatin [Lipitor] 40 mg PO HS #90 tab Nitroglycerin Sl Tabs [Nitrostat] 0.4 mg SUBLINGUAL Q5M PRN #25 tab PRN Reason: Chest Pain Continue Furosemide [Lasix] 20 mg PO DAILY Potassium Chloride [Potassium Chloride ER] 10 meq PO DAILY Vitamin D3(Unknown Dose) 1 tab PO DAILY Pantoprazole [Protonix] 40 mg PO DAILY cycloSPORINE 0.05% OPHTH SOLN [Restasis] 1 drop BOTH EYES BID Prednisolone Acetate/Pf [Prednisolone Acet 1% Eye Drop] 1 drop BOTH EYES BID Semaglutide [Ozempic] 2 mg SQ MO Discontinued Olmesartan Medoxomil [Benicar] 40 mg PO DAILY Triamterene-Hctz 37.5-25Mg [Maxzide 37.5-25] 1 tab PO DAILY Discharge Medication List Furosemide [Lasix] 20 mg PO DAILY 01/22/20 [History] Potassium Chloride [Potassium Chloride ER] 10 meq PO DAILY 01/22/20 [History] Pantoprazole [Protonix] 40 mg PO DAILY 07/28/23 [History] Prednisolone Acetate/Pf [Prednisolone Acet 1% Eye Drop] 1 drop BOTH EYES BID 07/28/23 [History] Semaglutide [Ozempic] 2 mg SQ MO 07/28/23 [History] Vitamin D3(Unknown Dose) 1 tab PO DAILY 07/28/23 [History] cycloSPORINE 0.05% OPHTH SOLN [Restasis] 1 drop BOTH EYES BID 07/28/23 [History] Aspirin 81 mg PO DAILY tab 07/29/23 [Rx] Atorvastatin [Lipitor] 40 mg PO HS #90 tab 07/29/23 [Rx] Isosorbide Mononitrate ER [Imdur] 30 mg PO DAILY #90 tab 07/29/23 [Rx] Losartan [Cozaar] 25 mg PO DAILY #90 tab 07/29/23 [Rx] Nitroglycerin Sl Tabs [Nitrostat] 0.4 mg SUBLINGUAL Q5M PRN #25 tab 07/29/23 [Rx] Follow up Appointment(s)/Referral(s): Chay Gonzalez MD [Primary Care Provider] - 1-2 days Armin Bush MD [STAFF PHYSICIAN] - 1 Week (Office will call patient with appointment ) Patient Instructions/Handouts: Chest Pain (DC), After Radial Heart C atheterization (GEN) Activity/Diet/Wound Care/Special Instructions: Activity: As tolerated. Take breaks as needed. Diet: Heart healthy and carb consistent diet. Avoid salts, or foods with hidden salts such as canned or boxed foods and frozen dinners. Extra salt makes your heart work harder and traps the fluid in your body for longer. Special Instructions: Take all of your medications as directed and remember to keep all of your doctor's appointments and follow-up as needed. Recommend outpatient follow-up with endocrinology for further evaluation on mild hypercalcemia. Thank you for allowing us to participate in your care, it was truly a pleasure having you for our patient!!! Discharge Disposition: HOME SELF-CARE
[2023-07-29 14:02] VITALS: RESP 16
[2023-07-29 14:34] VITALS: BP 110/71; PULSE 75
[2023-07-29 14:35] VITALS: TEMP 97.9
[2023-07-30] MEDS ORDERED: ASPIRIN 81 MG PO SCH (09:00)
[2023-07-30] MEDS ORDERED: LOSARTAN 25 MG TAB PO SCH (09:00)
[2023-08-01] MEDS ORDERED: NON FORMULARY DRUG (Semaglutide [Ozempic] 2 MG/0.75 ML Pen.Injctr) SQ SCH (09:53)
== END 2023-07-29 15:15 | disposition home or self-care (01) ==
LOC: EC 07:57 → 6NMEDSUR 09:31
PROVIDERS: ADMIT Internal Medicine; ATTEND Internal Medicine
DX: R07.89 Other chest pain (principal); R06.09 Other forms of dyspnea; I10 Essential (primary) hypertension; E78.5 Hyperlipidemia, unspecified; M79.602 Pain in left arm; R93.1 Abnormal findings on diagnostic imaging of heart and coronary circulation; I25.10 Atherosclerotic heart disease of native coronary artery without angina pectoris; E66.01 Morbid (severe) obesity due to excess calories; Z68.43 Body mass index [BMI] 50.0-59.9, adult; M79.7 Fibromyalgia; E83.52 Hypercalcemia; R73.03 Prediabetes; R74.8 Abnormal levels of other serum enzymes; Z79.85 Long-term (current) use of injectable non-insulin antidiabetic drugs; Z79.899 Other long term (current) drug therapy; Z82.49 Family history of ischemic heart disease and other diseases of the circulatory system
CPT/HCPCS: 96372; 99285; 36415; 93005; 93306; 93458; 80053; 80048; 83690; 83735; 84484; 85025 ×2; 85610; 85730; 71046; G0378 ×2; C1769; C1894; J2250; J1644 ×2; J2001; Q9957; Q9967; J3010

== ENCOUNTER → 2023-08-03 | Outpatient (CLI) | payer BC ==
[2023-08-03 17:10] LABS: ALT 28 U/L (8-44); AST 20 U/L (13-35); LDL Cholesterol,Calculated 62.9 mg/dL (0.0-131.0); VLDL Calculation 18.26 mg/dL (5.00-40.00)
== END | disposition home or self-care (01) ==
LOC: LABWHC1 08:40
PROVIDERS: ATTEND Internal Medicine Interventional Cardiology
DX: E78.2 Mixed hyperlipidemia (principal)
CPT/HCPCS: 36415; 80061; 84450; 84460

== ENCOUNTER → 2023-11-09 | Outpatient (CLI) | payer BC ==
--- NOTE | 2023-11-09 21:43 | US ---
EXAMINATION TYPE: US liver DATE OF EXAM: 11/09/2023 COMPARISON: CT abdomen and pelvis 09/21/2018 CLINICAL INDICATION: Female, 58 years old with history of R79.89 ABNORMAL FINDINGS OF BLOOD CHEMISTRY ; Abnormal labs. GB removed. TECHNIQUE: Multiple sonographic images of the right upper quadrant are obtained. FINDINGS: EXAM MEASUREMENTS: Liver Length: 20.7 cm CBD: 0.6 cm Right Kidney: 11.8 x 5.4 x 5.6 cm Pancreas: Echogenic in appearance Liver: Enlarged in size Gallbladder: Surgically absent CBD: wnl Right Kidney: No hydronephrosis or masses seen Unremarkable appearance of the pancreas. Liver is enlarged in size without focal lesion identified. N oncirrhotic morphology. Gallbladder is surgically absent. Common bile duct is within normal limits. R ight kidney is unremarkable without evidence of hydronephrosis, mass, or nephrolithiasis. IMPRESSION: 1. Hepatomegaly. 2. Postcholecystectomy changes.
== END | disposition home or self-care (01) ==
LOC: RADUSWWP 07:46
PROVIDERS: ATTEND Internal Medicine
DX: R79.89 Other specified abnormal findings of blood chemistry (principal); R16.0 Hepatomegaly, not elsewhere classified; K91.5 Postcholecystectomy syndrome
CPT/HCPCS: 76705

== ENCOUNTER → 2024-01-16 | Outpatient (CLI) | payer BC ==
--- NOTE | 2024-01-16 15:45 | NM ---
EXAMINATION TYPE: NM bone scan whole body DATE OF EXAM: 01/16/2024 2:23 PM CLINICAL INDICATION:Female, 58 years old with history of R74.8 ABNORMAL LEVELS OF OTHER SERUM ENZYMES ; COMPARISON: 05/07/2019 TECHNIQUE: Intravenous administration 23.8 mCi Tc 99m MDP followed by multiple scintigraphic images o f the appendicular and axial skeleton. Small [id number] thorax, head neck and abdominal oblique im ages were performed. Images acquired 4 hours post injection. FINDINGS: No abnormal uptake is identified within the appendicular or axial skeleton to suggest metastatic dise ase. Diffuse uptake within the calvarium and bilateral views. There is increased uptake within the bilateral knees, shoulders, sternoclavicular, and sacroiliac vanessa nts consistent with degenerative changes. No other photopenic areas. Physiologic radiotracer activity is demonstrated in the kidneys and bladder. IMPRESSION: 1. Nothing to suggest metastatic disease. 2. Degeneration changes of the knees, right mid foot/hindfoot and shoulders. Consider correlation wit h dedicated plain films. 3. Uptake within the skull somewhat diffusely. Correlate with CT imaging.
== END | disposition home or self-care (01) ==
LOC: RADNMMAIN 07:41
PROVIDERS: ATTEND Internal Medicine
DX: R74.8 Abnormal levels of other serum enzymes
CPT/HCPCS: 78306

== ENCOUNTER → 2024-02-07 | Outpatient (CLI) | payer BC ==
--- NOTE | 2024-02-07 19:35 | CT ---
EXAMINATION TYPE: CT brain wo/w con DATE OF EXAM: 02/07/2024 COMPARISON: No comparison studies at this location. Previous abnormal nuclear medicine scan is not av ailable at this location INDICATION: abnormal NM Scan of brain and elevated alkaline phosphates DLP: 2145.9 mGycm, Automated exposure control for dose reduction was used. CONTRAST: None CT of the brain is performed utilizing 3 mm thick sections through the posterior fossa and 3 mm thick sections through the remaining calvarium. Study is performed within 24 hours of arrival to the hosp [facility]. No abnormal hyperdensity is present to suggest an acute intracranial hemorrhage. No mass lesion is evident. No acute infarcts are evident. Some subtle centrum semiovale hypodensity may be present in the mid ri ght parietal lobe. Ventricles and sulci are appropriate for the patient age. Paranasal sinuses and mastoid air cells within the [id number] are clear. Hyperostosis frontalis internus is present, a normal variant. No suspicious enhancement evident. IMPRESSION: 1. No acute intracranial process. Follow up MRI can be performed as clinically indicated. 2. Subtle white matter change may be within the right centrum semiovale. [facility], , 02/07/2024 7:33 PM
== END | disposition home or self-care (01) ==
LOC: RADCTMAIN 07:14
PROVIDERS: ATTEND Internal Medicine
DX: R93.7 Abnormal findings on diagnostic imaging of other parts of musculoskeletal system
CPT/HCPCS: 70470